=== PATIENT | male | born 1990 | race Caucasian/White ===

== ENCOUNTER 2020-08-30 10:18 | Outpatient (REF) | payer OTHER, SELFPAY | END 2020-08-30 10:19 | disposition home or self-care (01) | LOC: HO.LAB 10:18 | PROVIDERS: Visit Provider Internal Medicine | DX: Z20.828 Contact with and (suspected) exposure to other viral communicable diseases (principal) | CPT/HCPCS: 87635 ==

== ENCOUNTER 2020-10-01 18:55 | Emergency (ER) | payer OTHER, SELFPAY ==
[2020-10-01 19:11] VITALS: BP 135/84; PULSE 102; RESP 16; TEMP 37.1; O2SAT 98; BMI 36.5
[2020-10-01 19:15] VITALS: BP 135/84; PULSE 102; RESP 16; TEMP 37.1; O2SAT 98
--- NOTE | 2020-10-01 19:20 | CT_ITS ---
EXAMINATION: CT MASTOIDS WITHOUT CONTRAST CLINICAL INFORMATION: Right posterior ear pain/swelling. COMPARISON: CT neck with IV contrast dated 03/28/2018. TECHNIQUE: Contiguous axial CT images of the skull base and mastoid air cells were obtained without contrast. Multiplanar reformats were provided and reviewed. This CT examination was performed using dose optimization techniques as appropriate, variously including the following: *Automated exposure control. *Adjustment of mA and/or kV according to patient size (this includes techniques or standardized protocols for targeted exams where dose is matched to indication/reason for exam; i.e. extremities or head). *Use of iterative reconstruction technique. DLP: 253 mGy-cm FINDINGS: The visualized mastoid air cells are clear. No associated air-fluid levels or opacification. No associated osseous erosion or breakdown of the sinus mace. No lytic or blastic osseous lesion. Partial opacification of the left ethmoid air cells. The visualized intracranial structures are unremarkable. Posterior to the right ear there are ovoid, subcutaneous foci. These measure approximately 0.8 x 0.7 cm (axial image 58/232), 1.3 x 1.0 cm more posteriorly (axial image 99/232), and 1.6 x 0.9 cm (axial image 144/232). There is minimal adjacent subcutaneous stranding. Findings likely represent enlarged lymph nodes. No associated organized fluid collection/abscess. CT/CT mastoid IMPRESSION: 1. Nodular soft tissue densities posterior to the right ear along the parieto-occipital calvarium, likely representing prominent lymph nodes. Findings may be reactive to an infectious or inflammatory process. Alternatively, an infiltrative neoplastic process cannot be excluded. Follow up is recommended. 2. No acute osseous abnormality. 3. Partial opacification of the left ethmoid air cells, which could indicate a degree of sinusitis.
--- NOTE | 2020-10-01 19:40 | PC.NURSE ---
PT IS EXTREMELY NERVOUS ABOUT ROBERT IZAGUIRRE.
[2020-10-01 19:54] LABS: MANUAL DIFF FLAG NO
--- NOTE | 2020-10-01 19:56 | PC.NURSE ---
PT IV CANCELED PER ASTON COTA STRAIGHT STICK.
[2020-10-01 20:06] LABS: Basophils Absolute Auto 0.1 X10*3/uL (0.0-0.2); Basophils Percent Auto 0.8 % (0-2); Eosinophils Absolute Auto 0.1 X10*3/uL (0.0-0.4); Eosinophils Percent Auto 1.5 % (0-4); Hematocrit 39.6 % (42-52); Hemoglobin 13.9 g/dl (14.0-18.0); Imm Gran Abs Auto 0.02 X10*3/uL (0.00-0.03); Imm Gran Pct Auto 0.2 % (0.0-0.4); Lymphocytes Absolute Auto 1.8 X10*3/uL (1.2-4.9); Lymphocytes Percent Auto 18.9 % (20-40); Mean Corpuscular HGB Conc 35.1 g/dl (31.0-36.0); Mean Corpuscular Hemoglobin 30.5 pg (27.0-33.0); Mean Corpuscular Volume 86.8 fL (80-98); Mean Platelet Volume 10.5 fL (9.4-12.4); Monocytes Absolute Auto 0.5 X10*3/uL (0.1-1.2); Monocytes Percent Auto 5.8 % (2-11); Neutrophils Absolute Auto 6.8 X10*3/uL (2.0-8.3); Neutrophils Percent Auto 72.8 % (45-73); Platelet Count 251 X10*3/uL (160-400); Red Blood Count 4.56 X10*6/uL (4.60-5.80); White Blood Count 9.3 X10*3/uL (4.8-10.8)
[2020-10-01 20:07] LABS: INTERNATIONAL NORM RATIO 1.1 (0.9-1.1); Prothrombin Time 13.2 SEC (10.8-13.0)
[2020-10-01 20:19] LABS: Anion Gap 12 (12-20); Blood Urea Nitrogen 10 mg/dL (9-16); Calcium 9.3 mg/dL (8.4-10.2); Carbon Dioxide 29 mmol/L (22-29); Chloride 102 mmol/L (96-108); Creatinine Clr Calc Pharmacy 157.1; Estimated Glomerular Filt Rate > 60; Glucose Random 82 mg/dL (60-115); Potassium 3.9 mmol/l (3.3-5.1); Sodium 139 mmol/L (135-145)
--- NOTE | 2020-10-01 20:20 | ED.EAR ---
HPI - Ear Problem General Chief complaint: Ear Problems Stated complaint: Earache Time Seen by Provider: 10/01/20 19:13 Source: patient Mode of arrival: ambulatory Limitations: no limitations History of Present Illness HPI Narrative: 30yoM c PMHx of odd detrimental health believes, ADHD and MRSA presenting to the ED with complaints of right posterior ear pain for the past 3 days denies any other symptom complaints or concerns at this time. Reports that has happened in the past and usually goes away within 2-3 days. Other associated symptoms at this time. Related Data Previous Rx's Medication Instructions Recorded cephalexin [Keflex] 500 mg PO Q6H 10 Days #40 cap 10/01/20 doxycycline monohydrate 100 mg PO BID 10 Days #20 cap 10/01/20 ibuprofen 800 mg PO Q8H PRN #14 tab 10/01/20 Allergies Allergy/AdvReac Type Severity Reaction Status Date / Time No Known Allergies Allergy Verified 10/01/20 19:17 [No Known Allergies*] Review of Systems Review of Systems: Constitutional : No Fever, No Chills, ENT/Mouth : No Hearing loss, + Ear Pain, No Nasal Congestion, No Sinus Pain, No Hoarseness, No sore throat, No Rhinorrhea, No Swallowing Difficulty Eyes: No Eye Pain, No Swelling, No Redness, No Foreign Body, No Discharge, No Vision Changes Cardiovascular : No Chest Pain, No SOB Respiratory : No Cough, No Sputum, No Wheezing Gastrointestinal : No Nausea, No Vomiting, No Diarrhea, No Constipation, No abdominal Pain Genitourinary : No Dysuria Musculoskeletal : No joint pain, No Myalgias, No Joint Swelling Skin : No Skin Lesions, No rash Neuro : No Weakness, No Numbness, No Paresthesias, No Loss of Consciousness, No Dizziness, No Headache Heme/Lymph: + Lymphadenopathy Yes all other systems are reviewed and are negative PMFSH Past Medical History Attestation statement: The following information was validated with the patient. Medical History ADHD MRSA (methicillin resistant Staphylococcus aureus) No known health problems Odd detrimental health beliefs Social History Social History Smoking Status: Current every day smoker Substance Use Type: Marijuana Advance Directives: No Advance Directives Information Provided: Yes Physical Exam Vital Signs: Vital Signs: Last Vital Signs Temp 98.7 F 10/01/20 19:15 Pulse 102 H 10/01/20 19:15 Resp 16 10/01/20 19:15 BP 135/84 10/01/20 19:15 Pulse Ox 98 10/01/20 19:15 Body Mass Index 36.5 vital signs have been reviewed as normal and appeared to be correct. Blood pressure normal. Heart rate normal. Respiration rate normal. Temperature normal. Oxygen saturation normal. Appearance: Alert. Oriented X3. No acute distress. Head: Normal external exam. Normocephalic. Atraumatic. Eyes: PERRLA. EOMI. Conjunctiva and sclera normal. Eyelids normal. ENT: EAC normal. TM's Normal. TTP of right posterior aspect of the ear with mild soft tissues swelling and feels firm. No erythema noted. Pharynx normal. Uvula midline. Moist mucous membranes. Neck: Normal inspection. Neck supple. FROM. No adenopathy. Thyroid Normal. No meningeal signs. No neck mass noted. CVS: Normal heart rate and rhythm. Heart sound normal. No murmurs noted. Pulses normal throughout. Respiratory: No respiratory distress. Painless inspiration. Breath sounds normal. No wheezes/rales/rhonchi noted. Chest nontender. No accessory muscle usage noted or decreased air movement noted. Back: Full range of motion noted. Skin: Skin warm and dry. Normal skin color. Normal skin turgor. No rashes/lesions/lacerations noted. Extremities: Extremities exhibit normal range of motion. Extremities nontender. Neuro: Oriented X 3. No motor deficit. No sensory deficit. Reflexes normal. Course Course Course Narrative: 30yoM c PMHx of [facility] believes, ADHD and MRSA presenting to the ED with complaints of right posterior ear pain for the past 3 days denies any other symptom complaints or concerns at this time. Reports that has happened in the past and usually goes away within 2-3 days. - concern for mastoiditis. - labs obtained and all within normal limits. CT scan of mastoid revealed densities posterior to the right ear along the parieto-occipital calvarium, likely representing prominent lymph nodes. Findings may be reactive to an infectious or inflammatory process. Alternatively, an infiltrative neoplastic process cannot be excluded. - therefore I gave a copy to the patient will DC home with antibiotics and referral to ENT and Oncology. Along with instructions return if any new or worsening symptoms. Patient understands agrees the plan. MDM - Ear Medical Records Attestation: I reviewed the patient's medical records. Lab Data Attestation: I reviewed the patient's lab results. Result diagrams: 10/01/20 19:48 10/01/20 19:48 Labs: Lab Results 10/01/20 10/01/20 10/01/20 Range/Units 19:48 19:48 19:48 WBC 9.3 (4.8-10.8) X10*3/uL RBC 4.56 L (4.60-5.80) X10*6/uL Hgb 13.9 L (14.0-18.0) g/dl Hct 39.6 L (42-52) % MCV 86.8 (80-98) fL MCH 30.5 (27.0-33.0) pg MCHC 35.1 (31.0-36.0) g/dl RDW 12.0 (11.0-16.0) % Plt Count 251 (160-400) X10*3/uL MPV 10.5 (9.4-12.4) fL Immature Gran % (Auto) 0.2 (0.0-0.4) % Neut % (Auto) 72.8 (45-73) % Lymph % (Auto) 18.9 L (20-40) % [place] % (Auto) 5.8 (2-11) % Eos % (Auto) 1.5 (0-4) % Baso % (Auto) 0.8 (0-2) % Lymph # (Auto) 1.8 (1.2-4.9) X10*3/uL [place] # (Auto) 0.5 (0.1-1.2) X10*3/uL Eos # (Auto) 0.1 (0.0-0.4) X10*3/uL Baso # (Auto) 0.1 (0.0-0.2) X10*3/uL Abs Immat Gran (auto) 0.02 (0.00-0.03) X10*3/uL Absolute Neuts (auto) 6.8 (2.0-8.3) X10*3/uL Absolute Nucleated RBC 0.000 (0.0-0.012) X10*3/uL Nucleated RBC % (auto) 0.0 (0.0-0.2) /100WBC PT 13.2 H (10.8-13.0) SEC INR 1.1 (0.9-1.1) Sodium 139 (135-145) mmol/L Potassium 3.9 (3.3-5.1) mmol/l Chloride 102 (96-108) mmol/L Carbon Dioxide 29 (22-29) mmol/L Anion Gap 12 (12-20) BUN 10 (9-16) mg/dL Creatinine 0.83 (0.5-1.4) mg/dL Estim Creat Clear Calc 157.1 Estimated GFR > 60 Random Glucose 82 (60-115) mg/dL Calcium 9.3 (8.4-10.2) mg/dL Imaging Data CT mastoids : Attestation: I personally reviewed and interpreted this imaging study as follows: Radiologist's impression: IMPRESSION: 1. Nodular soft tissue densities posterior to the right ear along the parieto-occipital calvarium, likely representing prominent lymph nodes. Findings may be reactive to an infectious or inflammatory process. Alternatively, an infiltrative neoplastic process cannot be excluded. Follow up is recommended. 2. No acute osseous abnormality. 3. Partial opacification of the left ethmoid air cells, which could indicate a degree of sinusitis. Discharge Plan Discharge Clinical Impression: Lymphadenopathy, postauricular, Sinusitis Patient Disposition: Home, Self-Care Instructions: Sinusitis (ED), Lymphadenopathy (ED) Prescriptions: New ibuprofen 800 mg tablet 800 mg PO Q8H PRN (Reason: pain) Qty: 14 RF: 0 doxycycline monohydrate 100 mg capsule 100 mg PO BID 10 Days Qty: 20 RF: 0 cephalexin [Keflex] 500 mg capsule 500 mg PO Q6H 10 Days Qty: 40 RF: 0 Referrals: Simon Mcelroy PA-C [Primary Care Provider] - 2 days Priscilla Orellana MD [Physician] - 2 days Jose Turcios MD [Physician] - 2 days Stand Alone Forms: Work/School Release Print Language: Citizen Of [place]
== END 2020-10-01 20:50 | disposition home or self-care (01) ==
PROVIDERS: Physician Assistant Medical; Emergency Provider Internal Medicine; PCP Physician Assistant
DX: J01.90 Acute sinusitis, unspecified (principal); R59.1 Generalized enlarged lymph nodes; F17.200 Nicotine dependence, unspecified, uncomplicated; Z71.6 Tobacco abuse counseling; F12.90 Cannabis use, unspecified, uncomplicated; Z79.899 Other long term (current) drug therapy
CPT/HCPCS: 36415; 70481; 80048; 85025; 85610; 99284

== ENCOUNTER 2020-10-13 09:10 | Emergency (ER) | payer OTHER, SELFPAY ==
[2020-10-13 09:21] VITALS: BP 148/98; PULSE 60; RESP 16; TEMP 36.6; O2SAT 98; BMI 34.9
--- NOTE | 2020-10-13 09:39 | ED.HA ---
HPI - Headache General Chief Complaint: Headache <ASTON Sun Last Filed: 10/13/20 11:13> Stated Complaint: SHARP PAIN IN HEAD <ASTON Sun Last Filed: 10/13/20 11:13> Time Seen by Provider: 10/13/20 09:34 <ASTON Sun Last Filed: 10/13/20 11:13> Source: patient <ASTON Sun Last Filed: 10/13/20 11:13> Mode of arrival: ambulatory <ASTON Sun Last Filed: 10/13/20 11:13> Limitations: no limitations <ASTON Sun Last Filed: 10/13/20 11:13> History of Present Illness HPI Narrative: 30 y/o male presents with left sided headache for the last 4 days. He states it started after he had a choking episode and was coughing hard. He states the pain is worse with movement and bending down. He denies dizziness, fevers, gait abnormality, vision changes, weakness, or numbness. He was recently seen here on 10/[address] behind right ear - had CT scan of his head at that time showing enlarged post-auricular LN. He was prescribed antibiotics but never took them because the swelling was gone the next day. <ASTON Sun Last Filed: 10/13/20 11:13> MD elicited complaint: headache <ASTON Sun Last Filed: 10/13/20 11:13> Onset (ago): day(s) (4) <ASTON Sun Last Filed: 10/13/20 11:13> Onset description: gradually <ASTON Sun Last Filed: 10/13/20 11:13> Location: left and temporal <ASTON Sun Last Filed: 10/13/20 11:13> Severity: moderate <ASTON Sun Last Filed: 10/13/20 11:13> Quality & Timing: aching <ASTON Sun Last Filed: 10/13/20 11:13> Related Data Home Medications: Previous Rx's Medication Instructions Recorded cephalexin [Keflex] 500 mg PO Q6H 10 Days #40 cap 10/01/20 doxycycline monohydrate 100 mg PO BID 10 Days #20 cap 10/01/20 ibuprofen 800 mg PO Q8H PRN #14 tab 10/01/20 amoxicillin-pot clavulanate 1 tab PO Q12H #14 tab 10/13/20 [Augmentin] [id number]-zulqbgtcjnhas-miox 1 cap PO Q6H PRN #14 cap 10/13/20 [Fioricet] <ASTON Sun - Last Filed: 10/13/20 11:13> Allergies/Adverse Reactions: Allergies Allergy/AdvReac Type Severity Reaction Status Date / Time No Known Allergies Allergy Verified 10/01/20 19:17 [No Known Allergies*] <ASTON Sun - Last Filed: 10/13/20 11:13> Review of Systems Review of Systems: Constitutional: No Fever, No Chills ENT/Mouth: No sore throat, No Rhinorrhea, No Swallowing Difficulty Eyes: No Eye Pain, No Swelling, No Redness Cardiovascular: No Chest Pain, No SOB Respiratory: No Cough, No Sputum Gastrointestinal: No Nausea, No Vomiting, No Diarrhea, No abdominal Pain Musculoskeletal: No joint pain, No Myalgias Skin: No Skin Lesions, No rash Neuro: No Weakness, No Numbness, No Dizziness, + Headache Psych: No Anxiety/Panic, No Depression Heme/Lymph: No Lymphadenopathy <ASTON Sun Last Filed: 10/13/20 11:13> PMFSH Past Medical History Attestation statement: The following information was validated with the patient. <ATSON Sun - Last Filed: 10/13/20 11:13> Medical History: Medical History (Updated 10/14/20 @ 00:00 by Lonny Stover) ADHD MRSA (methicillin resistant Staphylococcus aureus) No known health problems Oppositional defiant disorder <ASTON Sun Last Filed: 10/13/20 11:13> Social History Social History: Social History Smoking Status: Current every day smoker Substance Use Type: Marijuana Advance Directives: No Advance Directives Information Provided: No <ASTON Sun Last Filed: 10/13/20 11:13> Physical Exam Vital Signs: Vital Signs: Last Vital Signs Temp 97.9 F 10/13/20 09:21 Pulse 60 10/13/20 09:21 Resp 16 10/13/20 09:21 BP 148/98 H 10/13/20 09:21 Pulse Ox 98 10/13/20 09:21 Body Mass Index 34.9 Appearance: Alert. Oriented X3. No acute distress. HEENT: normal inspection, PERRLA, EOMI. mild tenderness with pinna pull, left TM with fluid behind and slight bulging. right TM normal. CVS: Normal heart rate and rhythm. Pulses normal. Respiratory: No respiratory distress. Lungs CTAB Skin: Skin warm and dry. Normal skin color. Normal skin turgor. No rashes. Extremities: no LE edema Neuro: Oriented X 3. No motor deficit. No sensory deficit. <ASTON Sun - Last Filed: 10/13/20 11:13> Vital Signs: Last Vital Signs Temp 97.9 F 10/13/20 09:21 Pulse 60 10/13/20 09:21 Resp 16 10/13/20 09:21 BP 148/98 H 10/13/20 09:21 Pulse Ox 98 10/13/20 09:21 Body Mass Index 34.9 <Earnest Trinh MD - Last Filed: 11/03/20 08:37> Course Course Course Narrative: 30 y/o male here with left sided temporal headache, worse with movement and bending down. Exam reveals fluid behind TM, will treat for AOM. Fiorcet given for headache. Stable for discharge. <ASTON Sun - Last Filed: 10/13/20 11:13> I have reviewed the chart <Earnest Trinh MD - Last Filed: 11/03/20 08:37> Discharge Plan Discharge Clinical Impression: Headache, Otitis media <ASTON Sun - Last Filed: 10/13/20 11:13> Patient Disposition: Home, Self-Care <ASTON Sun - Last Filed: 10/13/20 11:13> Instructions: Serous Otitis Media (ED) <ASTON Sun - Last Filed: 10/13/20 11:13> Additional Instructions: Take the prescribed antibiotics for 1 full week. Take the prescribed medication as needed for headache. Take Motrin as needed for headache. If your headache worsens or changes, call your doctor or come back to the ER for further evaluation. Follow up with your Primary Care Doctor next week. <ASTON Sun - Last Filed: 10/13/20 11:13> Prescriptions: New amoxicillin-pot clavulanate [Augmentin] 875-125 mg tablet 1 tab PO Q12H Qty: 14 RF: 0 [id number]-pwipgswnirukx-bhlz [Fioricet] 50-300-40 mg capsule 1 cap PO Q6H PRN (Reason: pain) Qty: 14 RF: 0 No Action ibuprofen 800 mg tablet 800 mg PO Q8H PRN (Reason: pain) Qty: 14 RF: 0 doxycycline monohydrate 100 mg capsule 100 mg PO BID 10 Days Qty: 20 RF: 0 cephalexin [Keflex] 500 mg capsule 500 mg PO Q6H 10 Days Qty: 40 RF: 0 <ASTON Sun - Last Filed: 10/13/20 11:13> Stand Alone Forms: Work/School Release <ASTON Sun - Last Filed: 10/13/20 11:13> Interventions: ED Discharge Assessment Last Done: 10/13/20 10:08 <ASTON Sun - Last Filed: 10/13/20 11:13> Discharge Date/Time: 10/13/20 10:09 <ASTON Sun - Last Filed: 10/13/20 11:13>
[2020-10-13] MEDS: Butalb/Acetamin/Caff 50/325/40 TABLET 1 TAB PO (10:01)
[2020-10-13] MEDS: Amoxicillin 500 MG CAPSULE PO (10:01)
== END 2020-10-13 10:09 | disposition home or self-care (01) ==
PROVIDERS: Emergency Provider Emergency Medicine
DX: H65.02 Acute serous otitis media, left ear (principal); R51.9 Headache, unspecified; F12.90 Cannabis use, unspecified, uncomplicated; F17.200 Nicotine dependence, unspecified, uncomplicated; Z71.6 Tobacco abuse counseling; Z79.899 Other long term (current) drug therapy
CPT/HCPCS: 99283

== ENCOUNTER 2021-02-05 09:04 | Emergency (ER) | payer OTHER, SELFPAY ==
--- NOTE | ~2021-02-05 | XR_ITS ---
EXAMINATION: XR FOOT, LEFT CLINICAL INFORMATION: Foot pain. COMPARISON: None TECHNIQUE: AP, lateral, and oblique views of the left foot. FINDINGS: The bones and soft tissues are normal. No fracture. Alignment is anatomic. Joint spaces are maintained. XR/XR foot LT min 3V IMPRESSION: Unremarkable left foot exam.
[2021-02-05 09:14] VITALS: BP 144/61; PULSE 72; RESP 18; TEMP 36.8; O2SAT 99; BMI 38.0
--- NOTE | 2021-02-05 09:50 | ED.LOWEXIN ---
HPI - Extremity Injury (Lower) General Chief Complaint: Extremity Injury, Lower Stated Complaint: l foot inj Time Seen by Provider: 02/05/21 09:39 Source: patient Mode of arrival: ambulatory History of Present Illness HPI Narrative: 31-year-old male with a past medical history ADHD, MRSA, ODD, presenting to the ED complaining of left foot pain since yesterday. Reports pain with ambulation/movement of toes. Denies known injury/trauma, falls or crushing. Denies numbness, tingling, weakness, fever chills complaint: foot injury Related Data Previous Rx's Medication Instructions Recorded cephalexin [Keflex] 500 mg PO Q6H 10 Days #40 cap 10/01/20 doxycycline monohydrate 100 mg PO BID 10 Days #20 cap 10/01/20 ibuprofen 800 mg PO Q8H PRN #14 tab 10/01/20 amoxicillin-pot clavulanate 1 tab PO Q12H #14 tab 10/13/20 [Augmentin] [id number]-lpotawvpwrtrb-[id number] 1 cap PO Q6H PRN #14 cap 10/13/20 [Fioricet] acetaminophen [Tylenol Extra 500 mg PO Q6H PRN #20 tab 02/05/21 Strength] lidocaine [Lidoderm] 1 patch TOPICAL DAILY PRN #30 ea 02/05/21 MDD remove after 12 hours naproxen 500 mg PO BID PRN 10 Days #20 tab 02/05/21 Allergies Allergy/AdvReac Type Severity Reaction Status Date / Time No Known Allergies Allergy Verified 10/01/20 19:17 [No Known Allergies*] Review of Systems Review of Systems: Constitutional: No Fever, No Chills Musculoskeletal: + joint pain, No Myalgias, + Joint Swelling Skin: No Skin Lesions, No rash Neuro: No Weakness, No Numbness, No Paresthesias Yes all other systems are reviewed and are negative PMFSH Past Medical History Attestation statement: The following information was validated with the patient. Medical History (Updated 02/05/21 @ 10:26 by ASTON Walker) ADHD MRSA (methicillin resistant Staphylococcus aureus) No known health problems Oppositional defiant disorder Social History Social History Smoking Status: Current every day smoker Substance Use Type: Marijuana Advance Directives: Yes Advance Directives Information Provided: Yes Advance Directives on File: No Physical Exam Vital Signs: Vital Signs: Last Vital Signs Temp 98.3 F 02/05/21 09:14 Pulse 72 02/05/21 09:14 Resp 18 02/05/21 09:14 BP 144/61 H 02/05/21 09:14 Pulse Ox 99 02/05/21 09:14 Body Mass Index 38.0 Const: General: cooperative, healthy appearing and no acute distress Orientation/consciousness: patient oriented x3 Limitations: no limitations HENMT: Head: Yes normal to inspection Ears: hearing grossly normal bilaterally General nose exam: Normal external nose present Face and sinus: Yes normal facial exam Eyes: General: appearance normal, both eyes and all related structures EOM: EOMs intact bilaterally Neck: Neck: Yes normal visual inspection Resp: Effort & Inspection: normal respiratory effort Cardio: Peripheral pulses: dorsalis pedis present Skin: Rashes: no rashes Wounds: no wounds Neuro: General: patient oriented x3, tone normal and moves all extremities Gait exam (Neuro): Normal gait present Extrem: Other: Left foot with mild plantar swelling distally and tenderness to palpation. No erythema/fluctuance/induration. NV intact Full range of motion intact to ankle/toes Course Course Course Narrative: XR foot LT min 3V IMPRESSION: Unremarkable left foot exam >> patient placed in Tico wrap for comfort MDM - Extremity Injury (Lower) MDM Narrative Medical decision making narrative: 31-year-old male with a past medical history ADHD, MRSA, ODD, presenting to the ED complaining of left foot pain since yesterday. On exam VSS, NAD/well-appearing, physical exam as above. Concern for MSK pain/stress fracture. Exam not consistent with cellulitis/abscess. Will obtain x-rays Discharge Plan Discharge Clinical Impression: Acute foot pain Qualifiers: Laterality: left Qualified Code(s): M79.672 - Pain in left foot Patient Disposition: Home, Self-Care Instructions: Metatarsalgia (DC) Additional Instructions: Your x-rays are unremarkable. Wear [place]ico wrap at home as needed for comfort. Your pain is likely musculoskeletal Naproxen as an anti-inflammatory / pain medication, take with food Lidoderm patches are numbing patches, apply to painful area In addition take Tylenol at home Ice and elevate your foot If symptoms persist or worsen, pain becomes unbearable, or weakness return to the ED Prescriptions: New acetaminophen [Tylenol Extra Strength] 500 mg tablet 500 mg PO Q6H PRN (Reason: pain or fever) Qty: 20 RF: 0 lidocaine [Lidoderm] 5 % adhesive patch,medicated 1 patch topical DAILY MDD remove after 12 hours PRN (Reason: pain) Qty: 30 RF: 0 naproxen 500 mg tablet 500 mg PO BID PRN (Reason: pain) 10 Days Qty: 20 RF: 0 No Action amoxicillin-pot clavulanate [Augmentin] 875-125 mg tablet 1 tab PO Q12H Qty: 14 RF: 0 [id number]-xuzkimjhomxcd-exnk [Fioricet] 50-300-40 mg capsule 1 cap PO Q6H PRN (Reason: pain) Qty: 14 RF: 0 ibuprofen 800 mg tablet 800 mg PO Q8H PRN (Reason: pain) Qty: 14 RF: 0 doxycycline monohydrate 100 mg capsule 100 mg PO BID 10 Days Qty: 20 RF: 0 cephalexin [Keflex] 500 mg capsule 500 mg PO Q6H 10 Days Qty: 40 RF: 0 Referrals: Ethan Deshpande [Physician] - 2 days
== END 2021-02-05 10:37 | disposition home or self-care (01) ==
PROVIDERS: Emergency Provider Emergency Medicine
DX: M79.672 Pain in left foot (principal); Z86.14 Personal history of Methicillin resistant Staphylococcus aureus infection; F91.3 Oppositional defiant disorder; F90.9 Attention-deficit hyperactivity disorder, unspecified type
CPT/HCPCS: 73630; 99283

== ENCOUNTER 2021-11-11 15:28 | Emergency (ER) | payer OTHER, SELFPAY ==
[2021-11-11 16:40] VITALS: BP 137/87; PULSE 78; RESP 16; TEMP 36.9; O2SAT 98; BMI 38.0
--- NOTE | 2021-11-11 17:27 | ED.EAR ---
HPI - Ear Problem General Chief complaint: Ear Problems Stated complaint: left ear pain Time Seen by Provider: 11/11/21 17:26 History of Present Illness HPI Narrative: Patient complains of left ear pain for 2 days, no fever no toothache no stuffy nose no congestion no sinus pain no sore throat Related Data Previous Rx's Medication Instructions Recorded cephalexin 500 mg capsule (Keflex) 500 mg PO Q6H 10 Days #40 cap 10/01/20 doxycycline monohydrate 100 mg 100 mg PO BID 10 Days #20 cap 10/01/20 capsule ibuprofen 800 mg tablet 800 mg PO Q8H PRN #14 tab 10/01/20 amoxicillin 875 mg-potassium 1 tab PO Q12H #14 tab 10/13/20 clavulanate 125 mg tablet (Augmentin) vzmbmirdpi-ftytqehwiovwo-snzuxszt 1 cap PO Q6H PRN #14 cap 10/13/20 50 mg-300 mg-40 mg capsule (Fioricet) acetaminophen 500 mg tablet 500 mg PO Q6H PRN #20 tab 02/05/21 (Tylenol Extra Strength) lidocaine 5 % topical patch 1 patch TOPICAL DAILY PRN #30 ea 02/05/21 (Lidoderm) MDD remove after 12 hours naproxen 500 mg tablet 500 mg PO BID PRN 10 Days #20 tab 02/05/21 amoxicillin 875 mg-potassium 1 tab PO Q12H 7 Days #14 tab 11/11/21 clavulanate 125 mg tablet (Augmentin) ciprofloxacin 0.2 %-hydrocortisone 3 drp OTIC (EAR) LEFT BID 7 Days 11/11/21 1 % ear drops,suspension (Cipro HC) ml ciprofloxacin 0.2 %-hydrocortisone 3 drp OTIC (EAR) LEFT BID 7 Days 11/11/21 1 % ear drops,suspension (Cipro HC) #10 ml ibuprofen 600 mg tablet 600 mg PO Q6H PRN #20 tab 11/11/21 Allergies Allergy/AdvReac Type Severity Reaction Status Date / Time No Known Allergies Allergy Verified 11/11/21 16:39 [No Known Allergies*] Review of Systems Review of Systems: Positive for left ear pain Negatives are no fever no chills no dizziness no weakness no headache no neck pain no stiff neck no chest pain no shortness of breath no numbness weakness or tingling no sinus congestion no sinus blockage no toothache no runny Yes all other systems are reviewed and are negative [facility] Past Medical History Source: nursing notes reviewed Medical History (Updated 11/11/21 @ 17:32 by ASTON Norman) ADHD MRSA (methicillin resistant Staphylococcus aureus) No known health problems Oppositional defiant disorder Social History Social History Substance Use Type: Marijuana Advance Directives: No Advance Directives Information Provided: Yes Physical Exam Vital Signs: Vital Signs: Last Vital Signs Temp 98.5 F 11/11/21 16:40 Pulse 78 11/11/21 16:40 Resp 16 11/11/21 16:40 BP 137/87 11/11/21 16:40 Pulse Ox 98 11/11/21 16:40 BMI result Body Mass Index 38.0 General appearance no distress The bilateral ear exam the right ear is normal in appearance the left ear was somewhat cloudy the canal was mildly narrowed and there was pain with movement of the auricle, there was no mastoid tenderness no surrounding redness or erythema no discharge from ear Sinuses nontender Respiratory no distress Extremities full range of motion x4 Course Course Course Narrative: Patient is treated for possible otitis externa with otitis media on left side, was well-appearing and was discharged Discharge Plan Discharge Clinical Impression: Otitis externa Qualifiers: Otitis externa type: unspecified type Chronicity: acute Laterality: left Qualified Code(s): H60.502 - Unspecified acute noninfective otitis externa, left ear Otitis media Qualifiers: Otitis media type: unspecified Laterality: left Qualified Code(s): H66.92 - Otitis media, unspecified, left ear Patient Disposition: Home, Self-Care Additional Instructions: We are treating with antibiotic drops and pills Return any time for worse pain fever any worse condition or or any concern Follow with primary doctor in 3-4 days if not improved or you can return to the ER any time Prescriptions: New amoxicillin-pot clavulanate [Augmentin] 875-125 mg tablet 1 tab PO Q12H 7 Days Qty: 14 RF: 0 Cipro HC 0.2-1 % drops,suspension 3 drp otic (ear) left BID 7 Days RF: 0 Cipro HC 0.2-1 % drops,suspension 3 drp otic (ear) left BID 7 Days Qty: 10 RF: 0 ibuprofen 600 mg tablet 600 mg PO Q6H PRN (Reason: pain) Qty: 20 RF: 0 No Action amoxicillin-pot clavulanate [Augmentin] 875-125 mg tablet 1 tab PO Q12H Qty: 14 RF: 0 xbubaarmgu-jlrqkyfeucyzt-nass [Fioricet] 50-300-40 mg capsule 1 cap PO Q6H PRN (Reason: pain) Qty: 14 RF: 0 ibuprofen 800 mg tablet 800 mg PO Q8H PRN (Reason: pain) Qty: 14 RF: 0 doxycycline monohydrate 100 mg capsule 100 mg PO BID 10 Days Qty: 20 RF: 0 cephalexin [Keflex] 500 mg capsule 500 mg PO Q6H 10 Days Qty: 40 RF: 0 acetaminophen [Tylenol Extra Strength] 500 mg tablet 500 mg PO Q6H PRN (Reason: pain or fever) Qty: 20 RF: 0 lidocaine [Lidoderm] 5 % adhesive patch,medicated 1 patch topical DAILY MDD remove after 12 hours PRN (Reason: pain) Qty: 30 RF: 0 naproxen 500 mg tablet 500 mg PO BID PRN (Reason: pain) 10 Days Qty: 20 RF: 0
== END 2021-11-11 17:42 | disposition home or self-care (01) ==
PROVIDERS: Emergency Provider Internal Medicine
DX: H66.92 Otitis media, unspecified, left ear (principal); H60.502 Unspecified acute noninfective otitis externa, left ear
CPT/HCPCS: 99283

== ENCOUNTER 2021-11-15 12:36 | Emergency (ER) | payer OTHER, SELFPAY ==
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
[2021-11-15 12:51] VITALS: BP 165/105; PULSE 100; RESP 19; TEMP 36.6; O2SAT 100; BMI 38.0
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
[2021-11-15] MEDS: Acetaminophen 325 MG TABLET 650 MG PO (14:49)
== END 2021-11-15 15:47 | disposition home or self-care (01) ==
PROVIDERS: Emergency Provider Emergency Medicine
DX: S02.2XXA Fracture of nasal bones, initial encounter for closed fracture (principal); Y04.2XXA Assault by strike against or bumped into by another person, initial encounter; Y93.89 Activity, other specified; Y92.511 Restaurant or cafe as the place of occurrence of the external cause; Y99.0 Civilian activity done for income or pay
CPT/HCPCS: 70160; 70450; 70486; 99284

== ENCOUNTER 2022-08-01 08:25 | Emergency (ER) | payer OTHER, SELFPAY ==
--- NOTE | ~2022-08-01 | XR_ITS ---
EXAMINATION: XR CHEST CLINICAL INFORMATION: Shortness of breath COMPARISON: 12/27/2016 TECHNIQUE: 2 views of the chest were obtained. FINDINGS: No significant abnormality is noted involving the heart, lungs, mediastinum, bony thorax or soft tissues. XR/XR chest 2V IMPRESSION: Unremarkable examination.
[2022-08-01 08:38] VITALS: BP 144/81; PULSE 89; RESP 18; TEMP 36.6; O2SAT 98; BMI 38.0
[2022-08-01 09:19] LABS: COVID-19 Test Negative (Negative); IDNOW Serial# 16C4AD1C
--- NOTE | 2022-08-01 09:46 | ED_ITS ---
HPI - URI/Sore Throat General Chief Complaint: Upper Respiratory Symptoms Stated Complaint: Stuffy Nose Congestion Time Seen by Provider: 08/01/22 09:46 Source: patient Mode of arrival: ambulatory Limitations: no limitations History of Present Illness HPI Narrative: Patient presents emergency department for evaluation of upper respiratory symptoms. He reports 2 days ago he had a sore throat that lasted about 24 hours, yesterday he began with nasal congestion. This morning he developed a productive cough, during his coughing episodes he felt short of breath therefore he came to the emergency department. At this time denies shortness of breath. Reports that 1 of his children are ill with similar symptoms at this time. Denies fevers, chills, sore throat, chest pain, palpitations, shortness of breath, difficulty breathing prior nausea, vomiting abdominal pain, numbness or tingling of the extremities. Related Data Previous Rx's Medication Instructions Recorded cephalexin 500 mg capsule (Keflex) 500 mg PO Q6H 10 days #40 caps 10/01/20 doxycycline monohydrate 100 mg 100 mg PO BID 10 days #20 caps 10/01/20 capsule ibuprofen 800 mg tablet 800 mg PO Q8H PRN pain #14 tabs 10/01/20 amoxicillin 875 mg-potassium 1 tab PO Q12H #14 tabs 10/13/20 clavulanate 125 mg tablet (Augmentin) fmljdislfx-vvofadwqkzswf-xxfjmekm 1 cap PO Q6H PRN pain #14 caps 10/13/20 50 mg-300 mg-40 mg capsule (Fioricet) acetaminophen 500 mg tablet 500 mg PO Q6H PRN pain or fever 02/05/21 (Tylenol Extra Strength) #20 tabs lidocaine 5 % topical patch 1 patch topical DAILY PRN pain #30 02/05/21 (Lidoderm) ea naproxen 500 mg tablet 500 mg PO BID PRN pain 10 days #20 02/05/21 tabs amoxicillin 875 mg-potassium 1 tab PO Q12H 7 days #14 tabs 11/11/21 clavulanate 125 mg tablet (Augmentin) ciprofloxacin 0.2 %-hydrocortisone 3 drp otic (ear) left BID 7 days 11/11/21 1 % ear drops,suspension (Cipro HC) ciprofloxacin 0.2 %-hydrocortisone 3 drp otic (ear) left BID 7 days 11/11/21 1 % ear drops,suspension (Cipro HC) #10 mL ibuprofen 600 mg tablet 600 mg PO Q6H PRN pain #20 tabs 11/11/21 acetaminophen 500 mg capsule 1,000 mg PO Q6H PRN pain #14 caps 11/15/21 cephalexin 500 mg capsule 500 mg PO QID 7 days #28 caps 11/15/21 oxycodone 5 mg tablet 5 mg PO Q8H PRN pain #10 tabs 11/15/21 Allergies Allergy/AdvReac Type Severity Reaction Status Date / Time No Known Allergies Allergy Verified 11/11/21 16:39 [No Known Allergies*] Review of Systems Review of Systems: Constitutional: No fever. No chills. No weakness. Positive fatigue. ENT/ Mouth: No Ear Pain, positive Nasal Congestion, no sore throat, No Rhinorrhea, No Swallowing Difficulty Skin: No rash or itching. Cardiovascular: No chest pain. No palpitations. Respiratory: No shortness of breath. Positive cough. Positive sputum production. Gastrointestinal: No nausea. No vomiting. No diarrhea. No abdominal pain. Genitourinary: No burning micturition. No urinary frequency. Neurologic: No headache. No dizziness. No syncope. No numbness or tingling in the extremities. Musculoskeletal: No muscle pain. No back pain. No joint pain or stiffness. Yes all other systems are reviewed and are negative PMFSH Past Medical History Attestation statement: The following information was validated with the patient. Source: old records reviewed Medical History ADHD MRSA (methicillin resistant Staphylococcus aureus) No known health problems Oppositional defiant disorder Social History Social History Substance Use Type: Marijuana Advance Directives: No Advance Directives Information Provided: Yes Physical Exam Vital Signs: Vital Signs: Last Vital Signs Temp 97.9 F 08/01/22 08:38 Pulse 89 08/01/22 08:38 Resp 18 08/01/22 08:38 BP 144/81 H 08/01/22 08:38 Pulse Ox 98 08/01/22 08:38 O2 Del Method 08/01/22 08:38 BMI result Body Mass Index 38.0 Appearance: Alert.?Oriented to person, place and time. No acute distress.?Normal affect. Eyes: Pupils equal, round and reactive to light.? ENT: TM normal bilaterally. Pharynx normal.?? Neck: Normal inspection.? Neck supple.??No cervical adenopathy CVS: Heart sounds normal. Normal heart rate and rhythm.? Pulses normal.?? Respiratory: No respiratory distress.? Lung sounds clear to auscultation bilaterally?? Abdomen: Soft and non-tender. Normoactive bowel sounds. Skin: Skin warm and dry.? Normal skin color.? ? Extremities: No lower extremity edema.? Neuro: Moves all extremities spontaneously. Sensation intact bilaterally. No motor deficits. Ambulates with normal steady gait. Course Course Course Narrative: Patient is a 32-year-old male presenting for evaluation of upper respiratory symptoms. COVID-19 testing is negative. At this time history and physical exam not consistent with ACS/PE/pneumonia. Well-appearing, nontoxic, afebrile, no tachycardia or tachypnea/hypoxia. Speaking clear full sentences, ambulatory with steady gait. Discussed conservative treatment including rest, hydration, Tylenol/ibuprofen as needed for fever and body aches, saline nasal spray, humidifier, hnoc-dps-wshcdrq cold medication/ mucinex. Advised to follow-up with primary care provider as needed, discussed reasons to return back to the emergency department. All questions were answered. Patient discharged home in stable condition. Provided with a return to work/school note. MDM - URI/Sore Throat Medical Records Attestation: I reviewed the patient's medical records. Lab Data Attestation: I reviewed the patient's lab results. Labs: Lab Results 08/01/22 Range/Units 08:43 COVID-19 (LEXX) Negative (Negative) COVID-19 Clin Com See Note Imaging Data Chest x-ray: Radiologist's impression: XR/XR chest 2V IMPRESSION: Unremarkable examination. Discharge Plan Discharge Clinical Impression: Upper respiratory infection Patient Disposition: Home, Self-Care Instructions: Upper Respiratory Infection (ED) Additional Instructions: Be sure to rest, stay well hydrated drinking plenty of fluids, eat small fr equent meals. Tylenol/ibuprofen can be used as needed for fever/pain. Uvyc-usx-npvbfwc cold medications may be helpful as well for symptoms. Saline nasal spray, humidifier, Mucinex may be helpful for nasal congestion. You may return to the emergency department with any new or worsening symptoms or concerns. Follow-up with your primary care provider as needed. Prescriptions: No Action amoxicillin-pot clavulanate [Augmentin] 875-125 mg tablet 1 tab PO Q12H Qty: 14 0RF cvpbopbzji-ilxxhrqmpubvt-liff [Fioricet] 50-300-40 mg capsule 1 cap PO Q6H PRN (Reason: pain) Qty: 14 0RF ibuprofen 800 mg tablet 800 mg PO Q8H PRN (Reason: pain) Qty: 14 0RF doxycycline monohydrate 100 mg capsule 100 mg PO BID 10 Days Qty: 20 0RF cephalexin [Keflex] 500 mg capsule 500 mg PO Q6H 10 Days Qty: 40 0RF acetaminophen [Tylenol Extra Strength] 500 mg tablet 500 mg PO Q6H PRN (Reason: pain or fever) Qty: 20 0RF lidocaine [Lidoderm] 5 % adhesive patch,medicated 1 patch topical DAILY MDD remove after 12 hours PRN (Reason: pain) Qty: 30 0RF Rx Instructions: leave on most painful area for up to 12 hrs naproxen 500 mg tablet 500 mg PO BID PRN (Reason: pain) 10 Days Qty: 20 0RF amoxicillin-pot clavulanate [Augmentin] 875-125 mg tablet 1 tab PO Q12H 7 Days Qty: 14 0RF Cipro HC 0.2-1 % drops,suspension 3 drp otic (ear) left BID 7 Days 0RF Cipro HC 0.2-1 % drops,suspension 3 drp otic (ear) left BID 7 Days Qty: 10 0RF ibuprofen 600 mg tablet 600 mg PO Q6H PRN (Reason: pain) Qty: 20 0RF acetaminophen 500 mg capsule 1,000 mg PO Q6H PRN (Reason: pain) Qty: 14 0RF cephalexin 500 mg capsule 500 mg PO QID 7 Days Qty: 28 0RF oxycodone 5 mg tablet 5 mg PO Q8H PRN (Reason: pain) Qty: 10 0RF Stand Alone Forms: Work/School Release
== END 2022-08-01 10:51 | disposition home or self-care (01) ==
PROVIDERS: Emergency Provider Emergency Medicine
DX: J06.9 Acute upper respiratory infection, unspecified (principal); R05.9 Cough, unspecified; F12.90 Cannabis use, unspecified, uncomplicated; Z20.822 Contact with and (suspected) exposure to COVID-19; Z79.899 Other long term (current) drug therapy
CPT/HCPCS: 71046; 87635; 99282; 99283

== ENCOUNTER 2023-10-21 08:21 | Emergency (ER) | payer MEDICAID, SELFPAY ==
--- NOTE | ~2023-10-21 | CT_ITS ---
EXAMINATION: CT CERVICAL SPINE WITHOUT CONTRAST CLINICAL INFORMATION: Left-sided neck pain. COMPARISON: None available. TECHNIQUE: 3 mm thin axial and 2 mm thin sagittal and coronal images of cervical spine were obtained without contrast. This CT examination was performed using dose optimization techniques as appropriate, variously including the following: *Automated exposure control *Adjustment of mA and/or kV according to patient size (this includes techniques or standardized protocols for targeted exams where dose is matched to indication/reason for exam; i.e. extremities or head) *Use of iterative reconstruction technique DLP: 515 mGy-cm FINDINGS: On sagittal reconstructed images there is normal cervical lordosis. The vertebral heights, alignment and disc heights are normal. The craniovertebral junction and the C1-C2 alignment is normal. There is no visible acute fracture, dislocation or subluxation seen. The prevertebral and paravertebral soft tissues are normal. The airway is widely patent. Thyroid lobes are symmetrical and normal. The lung apices are clear. CT/CT cervical spine wo IV con IMPRESSION: Unremarkable CT cervical spine exam. Fleischner guidelines were followed.
[2023-10-21 08:45] VITALS: BP 126/74; PULSE 49; RESP 18; TEMP 36.2; O2SAT 98; BMI 36.9
--- NOTE | 2023-10-21 08:51 | ECG_ITS ---
Test Reason : neck and lt arm pain Blood Pressure : / mmHG Vent. Rate : 044 BPM Atrial Rate : 044 BPM P-R Int : 138 ms QRS Dur : 086 ms QT Int : 426 ms P-R-T Axes : 016 048 037 degrees QTc Int : 364 ms Marked sinus bradycardia Abnormal ECG When compared with ECG of 08-NOV-2016 06:54, Vent. rate has decreased BY 49 BPM QT has shortened Referred By: Generic ED Physician Electronically Signed By:Rob Paz
[2023-10-21 09:06] LABS: MANUAL DIFF FLAG NO
[2023-10-21 09:11] LABS: Basophils Absolute Auto 0.1 X10*3/uL (0.0-0.2); Basophils Percent Auto 1.3 % (0-2); Eosinophils Absolute Auto 0.1 X10*3/uL (0.0-0.4); Eosinophils Percent Auto 2.2 % (0-4); Hematocrit 41.6 % (42.0-52.0); Hemoglobin 14.3 g/dl (14.0-18.0); Imm Gran Abs Auto 0.03 X10*3/uL (0.00-0.03); Imm Gran Pct Auto 0.5 % (0.0-0.4); Lymphocytes Absolute Auto 1.9 X10*3/uL (1.2-4.9); Lymphocytes Percent Auto 29.6 % (20-40); Mean Corpuscular HGB Conc 34.4 g/dl (31.0-36.0); Mean Corpuscular Hemoglobin 29.9 pg (27.0-33.0); Mean Corpuscular Volume 86.8 fL (80.0-98.0); Mean Platelet Volume 10.4 fL (9.4-12.4); Monocytes Absolute Auto 0.5 X10*3/uL (0.1-1.2); Monocytes Percent Auto 7.2 % (2-11); Neutrophils Absolute Auto 3.8 x10*3/uL (2.0-8.3); Neutrophils Percent Auto 59.2 % (45-73); Platelet Count 271 X10*3/uL (160-400); Red Blood Count 4.79 X10*6/uL (4.60-5.80); Red Cell Distribution Width 12.1 % (11.0-16.0); White Blood Count 6.4 X10*3/uL (4.8-10.8)
[2023-10-21 09:25] LABS: Anion Gap 12 (12-20); Blood Urea Nitrogen 17 mg/dL (9-16); Calcium 9.4 mg/dL (8.4-10.2); Carbon Dioxide 25 mmol/L (22-29); Chloride 107 mmol/L (96-108); Creatinine Clr Calc Pharmacy 146.6; Estimated Glomerular Filt Rate > 60; Glucose Random 96 mg/dL (60-115); Potassium 4.2 mmol/L (3.3-5.1); Sodium 140 mmol/L (135-145)
[2023-10-21 09:32] LABS: Troponin-I High Sensitivity < 2.7 ng/L (<3.5-35.0)
--- NOTE | 2023-10-21 09:42 | ED.GENADULT ---
HPI - General Adult General Chief complaint: General Medical Stated complaint: Pain left side of neck down to arm Time Seen by Provider: 10/21/23 09:12 Source: patient Mode of arrival: ambulatory Limitations: no limitations History of Present Illness HPI narrative: 33 year old male with pmhx significant for ADHD presents to the ED today with complaint of left sided neck pain x2 hours. States that he was dropping off his at work this morning when he suddenly had left-sided neck pain that radiates to his left shoulder. Pain does not move down the left arm. States that he has had a stiff neck in the past upon waking up however this feels different and was not present upon waking this morning. Denies injury/trauma/fall. Pain radiates to left shoulder and is exacerbated with movement of the neck. Denies headache, sweats, vision changes, chest pain or palpitations, shortness of breath, cough/hemoptysis, numbness/tingling/weakness of the upper extremities. No personal or familial history of cardiac disease. No recent travel or long car rides. Related Data Previous Rx's Medication Instructions Recorded cephalexin 500 mg capsule (Keflex) 500 mg PO Q6H 10 days #40 caps 10/01/20 doxycycline monohydrate 100 mg 100 mg PO BID 10 days #20 caps 10/01/20 capsule ibuprofen 800 mg tablet 800 mg PO Q8H PRN pain #14 tabs 10/01/20 amoxicillin 875 mg-potassium 1 tab PO Q12H #14 tabs 10/13/20 clavulanate 125 mg tablet (Augmentin) [id number]-enrdpcld 1 cap PO Q6H PRN pain #14 caps 10/13/20 50 mg-300 mg-40 mg capsule (Fioricet) acetaminophen 500 mg tablet 500 mg PO Q6H PRN pain or fever 02/05/21 (Tylenol Extra Strength) #20 tabs lidocaine 5 % topical patch 1 patch topical DAILY PRN pain #30 02/05/21 (Lidoderm) ea naproxen 500 mg tablet 500 mg PO BID PRN pain 10 days #20 02/05/21 tabs amoxicillin 875 mg-potassium 1 tab PO Q12H 7 days #14 tabs 11/11/21 clavulanate 125 mg tablet (Augmentin) ciprofloxacin 0.2 %-hydrocortisone 3 drp otic (ear) left BID 7 days 11/11/21 1 % ear drops,suspension (Cipro HC) ciprofloxacin 0.2 %-hydrocortisone 3 drp otic (ear) left BID 7 days 11/11/21 1 % ear drops,suspension (Cipro HC) #10 mL ibuprofen 600 mg tablet 600 mg PO Q6H PRN pain #20 tabs 11/11/21 acetaminophen 500 mg capsule 1,000 mg (2 x 500 mg) PO Q6H PRN 11/15/21 pain #14 caps cephalexin 500 mg capsule 500 mg PO QID 7 days #28 caps 11/15/21 oxycodone 5 mg tablet 5 mg PO Q8H PRN pain #10 tabs 11/15/21 cyclobenzaprine 5 mg tablet 5 mg PO BEDTIME PRN muscle spasm 10/21/23 #10 tabs lidocaine 5 % topical patch 1 patch topical DAILY #15 ea 10/21/23 (Lidoderm) naproxen 500 mg tablet 500 mg PO Q8-12H PRN pain (scale 10/21/23 score 4-6) #10 tabs Allergies Allergy/AdvReac Type Severity Reaction Status Date / Time No Known Allergies Allergy Verified 11/11/21 16:39 [No Known Allergies*] Review of Systems Review of Systems: Constitutional: No fever, chills, fatigue, night sweats, weight changes ENT/Mouth: No ear pain, hearing loss, nasal congestion, sinus pain, rhinorrhea, sore throat Eyes: No eye pain, swelling, redness, vision changes, discharge Cardio: No chest pain, palpitations, PEÑA, orthopnea, peripheral edema Pulm: No SOB, cough, sputum, wheezing, dyspnea, hemoptysis GI: No nausea, vomiting, hematemesis, abdominal pain, diarrhea, constipation, hematochezia, melena : No irregular bleeding, dysuria, frequency, urgency, hesitancy, hematuria, flank pain, urinary flow changes, urinary incontinence or retention MSK: No back pain, +neck pain, No joint pain, myalgias Skin: No lesions, rashes Neuro: No weakness, numbness, paresthesias, LOC, dizziness, headache All other systems reviewed and are negative. REPLACED BY [facility] Past Medical History Attestation statement: The following information was validated with the patient. Source: old records reviewed and nursing notes reviewed Medical History Oppositional defiant disorder MRSA (methicillin resistant Staphylococcus aureus) ADHD No known health problems Social History Social History Substance Use Type: Marijuana Advance Directives: No Physical Exam ED Vital Signs: Vital Signs - 24 hr 10/21/23 08:45 10/21/23 11:06 10/21/23 11:09 Temperature 97.2 F 97.3 F Pulse Rate 49 L 45 L Respiratory Rate 18 14 Blood Pressure 126/74 135/74 Pulse Oximetry 98 99 Oxygen Delivery Method Room Air Room Air BMI result Body Mass Index 36.9 Vital signs stable Const General: cooperative, healthy appearing, comfortable, no acute distress, alert and awake Nutritional Appearance: overweight Orientation/consciousness: patient oriented x3 Limitations: no limitations HENMT Head: Yes normal to inspection, Yes normocephalic and Yes atraumatic Ears: hearing grossly normal bilaterally, external ears normal, TM's normal bilaterally, EAC's normal and mastoids normal General nose exam: Normal external nose present Eyes General: appearance normal, both eyes and all related structures Conjunctivae: conjunctivae normal Sclerae: sclerae normal Pupils: Equal, round and reactive pupils present EOM: EOMs intact bilaterally Neck Other: + pain with leftward movment of c spine Neck: Yes normal visual inspection, Yes full ROM, Yes no lymphadenopathy, Yes no meningeal signs and Yes no JVD Chest Chest palpation & inspection: normal inspection of the chest and normal palpation of entire chest wall Resp Effort & Inspection: normal respiratory effort and able to speak in complete sentences Auscultation: clear to auscultation bilaterally Cardio Jugular venous distension: no JVD Rate: bradycardic Rhythm: regular rhythm Peripheral pulses: Peripheral pulses 2+ throughout GI Inspection: Yes normal to inspection Palpation (GI): Soft to palpation, nontender, no pulsatile masses and no aortic enlargement Back/Spine/Pelvis Other: No midline spinous tenderness. + left cervical paraspinal muscle tenderness extending over left trap mm. No step off deformity. Skin General skin exam: no rashes or lesions noted Neuro Other: Strength 5/5 intact throughout.? No saddle anesthesia.? Sensation intact to light touch.? Neurovascular intact distally.? General: patient oriented x3, gait normal, moves all extremities and no meningeal signs Cranial nerves: Yes Equal, round and reactive pupils present Gait exam (Neuro): Normal gait present Coordination: [id number]-[id number]-uwld test normal, [id number] test normal and Normal rapid alternating movements of the distal upper extremity present (Neuro) Extrem General: Yes normal to inspection and Yes full ROM Course Course Course Narrative: 1056-- CBC without leukocytosis or anemia. Chemistry without acute electrolyte abnormality requiring intervention. Troponin undetectable. EKG showing bradycardia at 44 BPM. Normal QT. no acute ischemic changes or ST elevations. No priors to compare to. patient does not complain of chest pain, palpitations, difficulty breathing, dyspnea on exertion. Likely asymptomatic bradycardia. unlikely ACS. CT cervical spine without acute fracture or subluxation. >> on re-evaluation, patient states that his neck pain has improved with Toradol. Now rates pain 2/10. I informed patient of lab and imaging results. This is likely MSK sprain/strain versus cervical radiculopathy. Will send patient home with NSAID, muscle relaxer and lidocaine patches. Patient has remained stable throughout ED visit today. Discussed strict return precautions. All questions answered at this time. Patient is agreeable with disposition and stable for discharge. Medications Administered Discontinued Medications Generic Name Dose Route Start Last Admin Trade Name Freq PRN Reason Stop Dose Admin Ketorolac Tromethamine 30 mg 10/21/23 09:47 10/21/23 10:06 Ketorolac Tromethamine 30 Mg/Ml Vial IM 10/21/23 09:48 30 mg ONCE ONE Administration Medical Decision Making Medical Decision Making [facility] Narrative: 33 year old male with pmhx significant for ADHD presents to the ED today with complaint of left sided neck pain x2 hours. Vital signs stable, normotensive. Patient is nontoxic appearing and in no acute distress. There is full range of motion of the cervical spine with pain on leftward movement of the C-spine. Tender to palpation of the left cervical paraspinal muscles. Bradycardic with regular rhythm. Lungs CTA bilaterally. No calf tenderness bilaterally. Pulses 2+ throughout. Exam is nonfocal. Cerebellum intact. Clinical concern for MSK sprain/strain, cervical radiculopathy. Unlikely viral syndrome, mono, strep throat. Unlikely rotator cuff injury/tear, arrhythmia, ACS, dissection, PE, CVA/TIA, ICH. Plan at this time for basic labs, imaging, pain control. Differential Diagnosis Differential Diagnoses: The differential diagnosis associated with the presentation includes As above. Admission/Observation Not indicated. Lab Data MDM Lab Attestation statement: I reviewed the patient's lab results. As above. 10/21/23 09:02 10/21/23 09:02 Labs: Lab Results 10/21/23 Range/Units 09:02 WBC 6.4 (4.8-10.8) X10*3/uL RBC 4.79 (4.60-5.80) X10*6/uL Hgb 14.3 (14.0-18.0) g/dl Hct 41.6 L (42.0-52.0) % MCV 86.8 (80.0-98.0) fL MCH 29.9 (27.0-33.0) pg MCHC 34.4 (31.0-36.0) g/dl RDW 12.1 (11.0-16.0) % Plt Count 271 (160-400) X10*3/uL MPV 10.4 (9.4-12.4) fL Immature Gran % (Auto) 0.5 H (0.0-0.4) % Neut % (Auto) 59.2 (45-73) % Lymph % (Auto) 29.6 (20-40) % Talbot % (Auto) 7.2 (2-11) % Eos % (Auto) 2.2 (0-4) % Baso % (Auto) 1.3 (0-2) % Lymph # (Auto) 1.9 (1.2-4.9) X10*3/uL Talbot # (Auto) 0.5 (0.1-1.2) X10*3/uL Eos # (Auto) 0.1 (0.0-0.4) X10*3/uL Baso # (Auto) 0.1 (0.0-0.2) X10*3/uL Abs Immat Gran (auto) 0.03 (0.00-0.03) X10*3/uL Absolute Neuts (auto) 3.8 (2.0-8.3) x10*3/uL Absolute Nucleated RBC 0.000 (0.0-0.012) X10*3/uL Nucleated RBC % (auto) 0.0 (0.0-0.2) /100WBC Sodium 140 (135-145) mmol/L Potassium 4.2 (3.3-5.1) mmol/L Chloride 107 (96-108) mmol/L Carbon Dioxide 25 (22-29) mmol/L Anion Gap 12 (12-20) BUN 17 H (9-16) mg/dL Creatinine 0.87 (0.5-1.4) mg/dL Estim Creat Clear Calc 146.6 Estimated GFR > 60 Random Glucose 96 (60-115) mg/dL Calcium 9.4 (8.4-10.2) mg/dL Troponin I High Sens < 2.7 (<3.5-35.0) ng/L Independent Interpretation I performed an independent interpretation of an: EKG and CT Scan Interpretation: EKG showing sinus bradycardia at a rate of 44 beats per minute, QT 426, QTC 364, no acute ischemic changes or ST elevations. CT cervical spine without acute fracture subluxation, agree with radiologist's interpretation. Radiology Impression Discussion of test interpretation with radiology: I have reviewed the radiologist's reading. Radiologist Impression: CT cervical spine wo IV conIMPRESSION: Unremarkable CT cervical spine exam. Fleischner guidelines were followed. External Record Review External record reviewed: Inpatient record Prescription Management I considered prescription management with: Pain Medication and Other (muscle relaxer) Critical Care Time Critical Care Time Critical Care Time: No Discharge Plan Discharge Clinical Impression: Acute neck pain Patient Disposition: Home, Self-Care Instructions: Acute Neck Pain (ED) Additional Instructions: Your EKG was normal. Your labs or unremarkable. Your cardiac enzyme was normal. The image of your neck did not show acute fracture. Your pain is likely musculoskeletal. Use ice several times per day for 20 minutes at a time for the next 48 hours and then change to heat. Flexeril is a muscle relaxer. Take this at night as it makes you drowsy. Do not drive, drink alcohol, or operate machinery while taking it. Naproxen is an anti-inflammatory / pain medication. Take with food. Do not take this with Ibuprofen or other NSAIDs as this may increase chance of gastric bleeding. Lidoderm patches are numbing patches. Apply to painful areas. In addition you may take Tylenol at home. Follow up with your primary care provider as needed If your pain worsens, if you develop new numbness, tingling, weakness, loss of bowel or bladder function call 911 or return to the ER immediately for evaluation. Prescriptions: New lidocaine [Lidoderm] 5 % adhesive patch,medicated 1 patch topical DAILY Qty: 15 0RF Rx Instructions: leave on most painful area for up to 12 hrs naproxen 500 mg tablet 500 mg PO Q8-12H PRN (Reason: pain (scale score 4-6)) Qty: 10 0RF cyclobenzaprine 5 mg tablet 5 mg PO BEDTIME PRN (Reason: muscle spasm) Qty: 10 0RF No Action amoxicillin-pot clavulanate [Augmentin] 875-125 mg tablet 1 tab PO Q12H Qty: 14 0RF [id number]-[id number]-wafl [Fioricet] 50-300-40 mg capsule 1 cap PO Q6H PRN (Reason: pain) Qty: 14 0RF ibuprofen 800 mg tablet 800 mg PO Q8H PRN (Reason: pain) Qty: 14 0RF doxycycline monohydrate 100 mg capsule 100 mg PO BID 10 Days Qty: 20 0RF cephalexin [Keflex] 500 mg capsule 500 mg PO Q6H 10 Days Qty: 40 0RF acetaminophen [Tylenol Extra Strength] 500 mg tablet 500 mg PO Q6H PRN (Reason: pain or fever) Qty: 20 0RF lidocaine [Lidoderm] 5 % adhesive patch,medicated 1 patch topical DAILY MDD remove after 12 hours PRN (Reason: pain) Qty: 30 0RF Rx Instructions: leave on most painful area for up to 12 hrs naproxen 500 mg tablet 500 mg PO BID PRN (Reason: pain) 10 Days Qty: 20 0RF amoxicillin-pot clavulanate [Augmentin] 875-125 mg tablet 1 tab PO Q12H 7 Days Qty: 14 0RF Cipro HC 0.2-1 % drops,suspension 3 drp otic (ear) left BID 7 Days 0RF Cipro HC 0.2-1 % drops,suspension 3 drp otic (ear) left BID 7 Days Qty: 10 0RF ibuprofen 600 mg tablet 600 mg PO Q6H PRN (Reason: pain) Qty: 20 0RF acetaminophen 500 mg capsule 1,000 mg PO Q6H PRN (Reason: pain) Qty: 14 0RF cephalexin 500 mg capsule 500 mg PO QID 7 Days Qty: 28 0RF oxycodone 5 mg tablet 5 mg PO Q8H PRN (Reason: pain) Qty: 10 0RF Referrals: Physician,None [Primary Care Provider] - Stand Alone Forms: Work/School Release Interventions: ED Discharge Assessment Last Done: 10/21/23 11:07 Discharge Date/Time: 10/21/23 11:09
[2023-10-21] MEDS: Ketorolac Tromethamine 30 MG/ML VIAL IM (10:06)
[2023-10-21 11:06] VITALS: BP 135/74; PULSE 45; RESP 14; O2SAT 99
[2023-10-21 11:09] VITALS: TEMP 36.3
== END 2023-10-21 11:09 | disposition home or self-care (01) ==
PROVIDERS: Emergency Provider Emergency Medicine Emergency Medical Services
DX: M54.2 Cervicalgia (principal); M79.602 Pain in left arm; R00.1 Bradycardia, unspecified; M25.512 Pain in left shoulder; Z79.899 Other long term (current) drug therapy
CPT/HCPCS: 36415; 72125; 80048; 84484; 85025; 93005; 96372; 99284; J1885

== ENCOUNTER → 2023-10-21 08:51 | Outpatient (BNV) | payer SELFPAY | PROVIDERS: Emergency Provider Emergency Medicine Emergency Medical Services; Visit Provider Internal Medicine Cardiovascular Disease | DX: R00.1 Bradycardia, unspecified (principal); R94.31 Abnormal electrocardiogram [ECG] [EKG] | CPT/HCPCS: 93010 ==

== ENCOUNTER 2024-02-23 02:17 | Emergency (ER) | payer MEDICAID, SELFPAY ==
--- NOTE | ~2024-02-23 | XR_ITS ---
EXAMINATION: XR FOOT, RIGHT CLINICAL INFORMATION: Swelling and pain. COMPARISON: None available. TECHNIQUE: AP, lateral, and oblique views of the right foot. FINDINGS: The bone mineralization is normal. The joint spaces are maintained. There is no fracture. There is dorsomedial soft tissue swelling. XR/XR foot RT 2V IMPRESSION: Dorsomedial soft tissue swelling. No fracture or dislocation.
[2024-02-23 02:29] VITALS: BP 127/78; PULSE 59; RESP 20; TEMP 36.7; O2SAT 98; BMI 38.0
[2024-02-23 03:07] LABS: MANUAL DIFF FLAG NO
[2024-02-23 03:09] LABS: Basophils Absolute Auto 0.1 X10*3/uL (0.0-0.2); Basophils Percent Auto 1.1 % (0-2); Eosinophils Absolute Auto 0.3 X10*3/uL (0.0-0.4); Eosinophils Percent Auto 2.9 % (0-4); Hematocrit 40.8 % (42.0-52.0); Hemoglobin 14.6 g/dl (14.0-18.0); Imm Gran Abs Auto 0.02 X10*3/uL (0.00-0.03); Imm Gran Pct Auto 0.2 % (0.0-0.4); Lymphocytes Absolute Auto 2.3 X10*3/uL (1.2-4.9); Lymphocytes Percent Auto 26.1 % (20-40); Mean Corpuscular HGB Conc 35.8 g/dl (31.0-36.0); Mean Corpuscular Hemoglobin 30.4 pg (27.0-33.0); Mean Corpuscular Volume 84.8 fL (80.0-98.0); Mean Platelet Volume 10.4 fL (9.4-12.4); Monocytes Absolute Auto 0.5 X10*3/uL (0.1-1.2); Monocytes Percent Auto 5.9 % (2-11); Neutrophils Absolute Auto 5.7 x10*3/uL (2.0-8.3); Neutrophils Percent Auto 63.8 % (45-73); Platelet Count 283 X10*3/uL (160-400); Red Blood Count 4.81 X10*6/uL (4.60-5.80); Red Cell Distribution Width 12.3 % (11.0-16.0)
[2024-02-23 03:21] LABS: Alanine Aminotransferase 21 U/L (0-40); Albumin Level 4.6 g/dL (3.5-5.0); Alkaline Phosphatase 74 U/L (39-117); Anion Gap 15 (12-20); Aspartate Amino Transferase 21 U/L (5-37); Bilirubin Total 0.6 mg/dL (0.0-1.0); Blood Urea Nitrogen 5 mg/dL (9-16); Calcium 9.5 mg/dL (8.4-10.2); Carbon Dioxide 23 mmol/L (22-29); Chloride 106 mmol/L (96-108); Creatinine Clr Calc Pharmacy 149.3; Estimated Glomerular Filt Rate > 60; Glucose Random 119 mg/dL (60-115); Potassium 3.4 mmol/L (3.3-5.1); Sodium 141 mmol/L (135-145); Total Protein 8.1 g/dL (6.5-8.0)
[2024-02-23 05:40] VITALS: BP 138/89; PULSE 54; RESP 18; TEMP 36.7; O2SAT 99
[2024-02-23] MEDS: Acetaminophen 325 MG TABLET 650 MG PO (05:45)
[2024-02-23 08:13] VITALS: BP 141/83; PULSE 43; RESP 16; TEMP 36.6; O2SAT 100
--- NOTE | 2024-02-23 08:35 | ED.EXTPRO ---
HPI - Extremity Problem General Chief complaint: Extremity Injury, Lower Stated complaint: left foot dwollen Time Seen by Provider: 02/23/24 08:09 Source: patient Mode of arrival: ambulatory Limitations: no limitations History of Present Illness HPI Narrative: 34 yo male with no PMH here with c/o R swollen foot and pain atraumatic cannot walk and it is hard to work. No fevers, no travel. He has not had gout before. MD Complaint: extremity pain, joint swelling and joint pain Onset (ago): day(s) (Friday) Pain Consistency: constant Location: left and lower extremity Quality: aching and constant Radiation: none Relieving factors: rest Exacerbating factors: weight bearing, walking and palpation Associated symptoms: denies other symptoms Related Data Previous Rx's ?Medication ?Instructions ?Recorded cephalexin 500 mg capsule (Keflex) 500 mg PO Q6H 10 days #40 caps 10/01/20 doxycycline monohydrate 100 mg 100 mg PO BID 10 days #20 caps 10/01/20 capsule ibuprofen 800 mg tablet 800 mg PO Q8H PRN pain #14 tabs 10/01/20 amoxicillin 875 mg-potassium 1 tab PO Q12H #14 tabs 10/13/20 clavulanate 125 mg tablet (Augmentin) [id number]-vomxmqxa 1 cap PO Q6H PRN pain #14 caps 10/13/20 50 mg-300 mg-40 mg capsule (Fioricet) acetaminophen 500 mg tablet 500 mg PO Q6H PRN pain or fever 02/05/21 (Tylenol Extra Strength) #20 tabs lidocaine 5 % topical patch 1 patch topical DAILY PRN pain #30 02/05/21 (Lidoderm) ea naproxen 500 mg tablet 500 mg PO BID PRN pain 10 days #20 02/05/21 tabs amoxicillin 875 mg-potassium 1 tab PO Q12H 7 days #14 tabs 11/11/21 clavulanate 125 mg tablet (Augmentin) ciprofloxacin 0.2 %-hydrocortisone 3 drp otic (ear) left BID 7 days 11/11/21 1 % ear drops,suspension (Cipro HC) ciprofloxacin 0.2 %-hydrocortisone 3 drp otic (ear) left BID 7 days 11/11/21 1 % ear drops,suspension (Cipro HC) #10 mL ibuprofen 600 mg tablet 600 mg PO Q6H PRN pain #20 tabs 11/11/21 acetaminophen 500 mg capsule 1,000 mg (2 x 500 mg) PO Q6H PRN 11/15/21 pain #14 caps cephalexin 500 mg capsule 500 mg PO QID 7 days #28 caps 11/15/21 oxycodone 5 mg tablet 5 mg PO Q8H PRN pain #10 tabs 11/15/21 cyclobenzaprine 5 mg tablet 5 mg PO BEDTIME PRN muscle spasm 10/21/23 #10 tabs lidocaine 5 % topical patch 1 patch topical DAILY #15 ea 10/21/23 (Lidoderm) naproxen 500 mg tablet 500 mg PO Q8-12H PRN pain (scale 10/21/23 score 4-6) #10 tabs cephalexin 500 mg capsule 500 mg PO QID 7 days #28 caps 02/23/24 doxycycline hyclate 100 mg tablet 100 mg PO BID #14 tabs 02/23/24 prednisone 20 mg tablet 40 mg (2 x 20 mg) PO DAILY 4 days 02/23/24 #8 tabs Allergies Allergy/AdvReac Type Severity Reaction Status Date / Time No Known Allergies Allergy Verified 02/23/24 02:34 [No Known Allergies*] Review of Systems Review of Systems: Constitutional : No Fever, No Chills ENT/Mouth : No Ear Pain, No Hoarseness, No sore throat Eyes: No Eye Pain, No Swelling, No Redness, No Foreign Body Cardiovascular : No Chest Pain, No SOB Respiratory : No Cough, No Dyspnea Gastrointestinal : No Nausea, No Vomiting, No Diarrhea, No abdominal Pain Genitourinary : No Dysuria, No Hematuria Musculoskeletal : positive joint pain, No Myalgias, pos Joint Swelling Skin : No Skin lacerations, No rash Neuro : No Weakness, No Numbness, No Loss of Consciousness, No Dizziness, No Headache All other systems reviewed and are negative [facility] Past Medical History Attestation statement: The following information was validated with the patient. Source: old records reviewed Medical History Oppositional defiant disorder MRSA (methicillin resistant Staphylococcus aureus) ADHD No known health problems Social History Social History Substance Use Type: Marijuana Advance Directives: No Advance Directives Information Provided: Yes Physical Exam Vital Signs: Vital Signs: Last Vital Signs Temp 97.8 F 02/23/24 08:13 Pulse 43 L 02/23/24 08:13 Resp 16 02/23/24 08:13 BP 141/83 H 02/23/24 08:13 Pulse Ox 100 02/23/24 08:13 O2 Del Method Room Air 02/23/24 08:13 BMI result Body Mass Index 38.0 Appearance: Alert. Oriented X3. No acute distress. Eyes: Pupils equal, round and reactive to light. ENT: Pharynx normal. Neck: Normal inspection. Neck supple. CVS: Normal heart rate and rhythm. Pulses normal. Respiratory: No respiratory distress. Breath sounds normal. Abdomen: Soft and nontender. Skin: Skin warm and dry. Normal skin color. Normal skin turgor. Extremities: no calf swelling or ttp - swelling and pain to dorsum of R foot and R 1st MTP joint - NV intact there is no redness or warmth Neuro: Oriented X 3. No motor deficit. No sensory deficit. Medications Administered Discontinued Medications Generic Name Dose Route Start Last Admin Trade Name Marvq PRN Reason Stop Dose Admin Acetaminophen 650 mg 02/23/24 05:40 02/23/24 05:45 Acetaminophen 325 Mg Tablet PO 02/23/24 05:41 650 mg ONCE ONE Administration Medical Decision Making Medical Decision Making [facility] Narrative: 34 yo male here with atraumatic R foot pain he hs NV intact will need basic labs, xray I suspect either sprain vs underyling skin infection vs gout - given history and undifferented and hx of MRSA will start on dual abx therapy and prednisone will give precautions to return. Isolated swelling to foot no extension to the calf no signs of DVT Differential Diagnosis Differential Diagnoses: The differential diagnosis associated with the presentation includes cellulitis, gout Admission/Observation Consideration of admission/observation: Escalation of care including admission/observation considered not toxic can be managed as outpatient Lab Data [facility] Lab Attestation statement: I reviewed the patient's lab results. 02/23/24 03:03 02/23/24 03:03 Labs: Lab Results 02/23/24 Range/Units 03:03 WBC 9.0 (4.8-10.8) X10*3/uL RBC 4.81 (4.60-5.80) X10*6/uL Hgb 14.6 (14.0-18.0) g/dl Hct 40.8 L (42.0-52.0) % MCV 84.8 (80.0-98.0) fL MCH 30.4 (27.0-33.0) pg MCHC 35.8 (31.0-36.0) g/dl RDW 12.3 (11.0-16.0) % Plt Count 283 (160-400) X10*3/uL MPV 10.4 (9.4-12.4) fL Immature Gran % (Auto) 0.2 (0.0-0.4) % Neut % (Auto) 63.8 (45-73) % Lymph % (Auto) 26.1 (20-40) % [place] % (Auto) 5.9 (2-11) % Eos % (Auto) 2.9 (0-4) % Baso % (Auto) 1.1 (0-2) % Lymph # (Auto) 2.3 (1.2-4.9) X10*3/uL [place] # (Auto) 0.5 (0.1-1.2) X10*3/uL Eos # (Auto) 0.3 (0.0-0.4) X10*3/uL Baso # (Auto) 0.1 (0.0-0.2) X10*3/uL Abs Immat Gran (auto) 0.02 (0.00-0.03) X10*3/uL Absolute Neuts (auto) 5.7 (2.0-8.3) x10*3/uL Absolute Nucleated RBC 0.000 (0.0-0.012) X10*3/uL Nucleated RBC % (auto) 0.0 (0.0-0.2) /100WBC Sodium 141 (135-145) mmol/L Potassium 3.4 (3.3-5.1) mmol/L Chloride 106 (96-108) mmol/L Carbon Dioxide 23 (22-29) mmol/L Anion Gap 15 (12-20) BUN 5 L (9-16) mg/dL Creatinine 0.86 (0.5-1.4) mg/dL Estim Creat Clear Calc 149.3 Estimated GFR > 60 Random Glucose 119 H (60-115) mg/dL Calcium 9.5 (8.4-10.2) mg/dL Total Bilirubin 0.6 (0.0-1.0) mg/dL AST 21 (5-37) U/L ALT 21 (0-40) U/L Alkaline Phosphatase 74 (39-117) U/L Total Protein 8.1 H (6.5-8.0) g/dL Albumin 4.6 (3.5-5.0) g/dL Independent Interpretation I performed an independent interpretation of an: Plain X-Ray (no fracture) Radiology Impression Discussion of test interpretation with radiology: I have reviewed the radiologist's reading. External Record Review External record reviewed: Office record Prescription Management I considered prescription management with: Antibiotic and Other Discharge Plan Discharge Clinical Impression: Localized swelling of right foot Patient Disposition: Home, Self-Care Instructions: Swollen Joint (ED) Additional Instructions: it is hard to say if this is infection vs gout we will treat you for both. return if not better or worsening give it 48 hours. take medications with full stomach of food. keep off foot for next 3 days. Prescriptions: New cephalexin 500 mg capsule 500 mg PO QID 7 Days Qty: 28 0RF prednisone 20 mg tablet 40 mg PO DAILY 4 Days Qty: 8 0RF doxycycline hyclate 100 mg tablet 100 mg PO BID Qty: 14 0RF No Action amoxicillin-pot clavulanate [Augmentin] 875-125 mg tablet 1 tab PO Q12H Qty: 14 0RF [id number] [Fioricet] 50-300-40 mg capsule 1 cap PO Q6H PRN (Reason: pain) Qty: 14 0RF ibuprofen 800 mg tablet 800 mg PO Q8H PRN (Reason: pain) Qty: 14 0RF doxycycline monohydrate 100 mg capsule 100 mg PO BID 10 Days Qty: 20 0RF cephalexin [Keflex] 500 mg capsule 500 mg PO Q6H 10 Days Qty: 40 0RF acetaminophen [Tylenol Extra Strength] 500 mg tablet 500 mg PO Q6H PRN (Reason: pain or fever) Qty: 20 0RF lidocaine [Lidoderm] 5 % adhesive patch,medicated 1 patch topical DAILY MDD remove after 12 hours PRN (Reason: pain) Qty: 30 0RF Rx Instructions: leave on most painful area for up to 12 hrs naproxen 500 mg tablet 500 mg PO BID PRN (Reason: pain) 10 Days Qty: 20 0RF amoxicillin-pot clavulanate [Augmentin] 875-125 mg tablet 1 tab PO Q12H 7 Days Qty: 14 0RF Cipro HC 0.2-1 % drops,suspension 3 drp otic (ear) left BID 7 Days 0RF Cipro HC 0.2-1 % drops,suspension 3 drp otic (ear) left BID 7 Days Qty: 10 0RF ibuprofen 600 mg tablet 600 mg PO Q6H PRN (Reason: pain) Qty: 20 0RF acetaminophen 500 mg capsule 1,000 mg PO Q6H PRN (Reason: pain) Qty: 14 0RF cephalexin 500 mg capsule 500 mg PO QID 7 Days Qty: 28 0RF oxycodone 5 mg tablet 5 mg PO Q8H PRN (Reason: pain) Qty: 10 0RF lidocaine [Lidoderm] 5 % adhesive patch,medicated 1 patch topical DAILY Qty: 15 0RF Rx Instructions: leave on most painful area for up to 12 hrs naproxen 500 mg tablet 500 mg PO Q8-12H PRN (Reason: pain (scale score 4-6)) Qty: 10 0RF cyclobenzaprine 5 mg tablet 5 mg PO BEDTIME PRN (Reason: muscle spasm) Qty: 10 0RF Stand Alone Forms: Work/School Release Print Language: Cypriot
[2024-02-23] MEDS: predniSONE 20 MG TABLET 60 MG PO (09:05)
[2024-02-23] MEDS: cephALEXin 500 MG CAPSULE PO (09:05)
[2024-02-23 09:11] VITALS: BP 141/83; PULSE 63; RESP 16; TEMP 36.6; O2SAT 100
== END 2024-02-23 09:13 | disposition home or self-care (01) ==
PROVIDERS: Emergency Provider Emergency Medicine
DX: R22.41 Localized swelling, mass and lump, right lower limb (principal)
CPT/HCPCS: 36415; 73620; 80053; 85025; 99283

== ENCOUNTER 2025-10-13 10:19 | Outpatient (AMB) | payer OTHER, SELFPAY ==
--- NOTE | 2025-10-13 10:23 | A.OFFPC_ITS ---
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 Lump on back: The patient reports a large lump on his upper back that has been present for at least 5 or 6 years. He states it is not painful but is annoying, gets in the way sometimes, and is getting bigger, prompting his visit to have it taken care of. The lump was previously evaluated at an ER, where he was told not to worry about it since it was not bothering him. History of Attention-Deficit Hyperactivity Disorder (ADHD): The patient has a history of ADHD and ODD diagnosed as a child, for which he previously took Adderall. He no longer takes medication or sees a therapist for these conditions. History of MRSA infection: Approximately 10 years ago, the patient had a MRSA infection on his right ankle resulting from a road rash injury. This required surgical irrigation and debridement without hardware placement. History of Acne: The patient had acne on his back in high school, which resulted in significant scarring. He reports that a prescribed benzoyl peroxide cream from an ER infected the acne, and he was later treated with Accutane by a whiskey filterer. Substance Use: The patient has been vaping oils and vapes from a dispensary for the past 2 years. He also reports smoking marijuana since he was 17 years old and denies any other drug use. Surgical History: - Irrigation and debridement of right an kle for MRSA infection, approximately 10 years ago. Medications: - The patient is not currently taking an y maintenance medications. - History of taking Adderall as a child for ADHD. - History of taking Accutane for acne. 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 - Substance Use: Has been vaping for 2 y ears, using oils and vapes from a dispensary. - Substance Use: Has been smoking weed s tammy age 17. - Substance Use: Denies use of other iglesia gs. - Sexual History: He is sexually active. Family History: No family history was discussed. Diagnostic Results: No diagnostic results were reviewed during the visit. Past Medical History - Has not seen a primary care doctor sin ce childhood. - MRSA infection of the right ankle from a road rash, treated with surgery about 10 years ago. - ADHD and ODD, diagnosed as a child. - Hospitalization as a child for mononuc leosis and pneumonia. - History of back acne treated with Accu tane. - No known allergies. Health Maintenance - Baseline laboratory studies will be or dered, including a CBC, CMP, lipid panel, HbA1c, TSH, vitamin B12, folate, and vitamin D. - Screening for HIV, hepatitis B, and he patitis C will be performed. - A follow-up appointment is scheduled i n two weeks to review the lab results. [facility] Medical History (Updated 10/13/25 @ 11:05 by Servando Hernandez MD) History of MRSA infection Substance use History of acne Localized swelling, mass and lump, trunk Oppositional defiant disorder MRSA (methicillin resistant Staphylococcus aureus) ADHD No known health problems Surgical History (Updated 10/13/25 @ 10:30 by Adama Vu CMA) History of ankle surgery Family History (Updated 10/13/25 @ 10:31 by Adama Vu CMA) Father Colon cancer Epilepsy Social History (Updated 10/13/25 @ 10:32 by Adama Vu CMA) Housing: House Alcohol intake: current Alcohol intake frequency: holidays/special occasions only Alcohol type: beer Comment: rarely Patient Tobacco Use Status: Never used Tobacco e-Cigarette/Vaping Use: Currently Using Substance Use Type: Marijuana service: No Current occupational status: employed 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 1. Little interest or pleasure in doing things: not at all 2. Feeling down, depressed, or hopeless: not at all 3. Trouble falling or staying asleep, or sleeping too much: not at all 4. Feeling tired or having little energy: not at all 5. Poor appetite or overeating: not at all 6. Feeling bad about yourself - or that you are a failure or have let yourself or your family down: not at all 7. Trouble concentrating on things, such as reading the newspaper or watching television: not at all 8. Moving or speaking so slowly that other people could have noticed. Or the opposite - being so fidgety or restless that you have been moving around a lot more than usual: not at all 9. Thoughts that you would be better off or of hurting yourself in some way: not at all Total score: 0 Depression Screening Interpretation: Negative Depression Screening Done: Yes 58443 - PHQ-9 Billing: Yes Source: Developed by Drs. Valdemar Beck, Gwendolyn Berrios, Som Castorena and colleagues, with an educational saulo from [employer]. Thrive Questionnaire Date Thrive assessed: 10/13/25 I am a: Patient What is your living situation today?: I have a steady place to live Within the past 12 months, did the food you bought not last and you didn't have the money to get more?: Never true Within the past 12 months, did you worry whether your food would run out before you got money to buy more?: Never true Do you have trouble paying for medicines?: No Do you have trouble getting transportation to medical appointments?: No Do you have trouble paying your heating and electricity bill?: No Do you have trouble taking care of your child, family member or friend?: No Do you have trouble with day-to-day activities such as bathing, preparing meals, shopping, managing finances, etc.?: No Are you currently unemployed and looking for a job?: No Are you interested in more education?: No Please select the resources that you would like help with: None Currently or been in a relationship where the following occur: No concerns reported THRIVE Score: 0 AUDIT C Alcohol Use Questionnaire (AUDIT-C) 1. How often do you have a drink containing alcohol?: Monthly or less 2. How many drinks containing alcohol do you have on a typical day when you are drinking?: 1 or 2 3. How often do you have six or more drinks on one occasion?: Never Total Score: 1 MARCK-7 AMB Questionnaire MARCK-7 Date MARCK - 7 assessed: 10/13/25 Feeling nervous, anxious, or on edge: 0 = Not at all Not being able to stop or control worryin = Not at all Worrying too much about different things: 0 = Not at all Trouble relaxin = Not at all Being so restless that it is hard to sit still: 0 = Not at all Becoming easily annoyed or irritable: 1 = Several days Feeling afraid as if something awful might happen: 0 = Not at all Total MARCK-7 score (0-4 normal; 5-9 mild; 10-14 moderate; 15-21 severe): 1 Source: Developed by Drs. Valdemar Beck, Gwendolyn Berrios, Som Castorena and colleagues, with an educational saulo from [employer]. MARCK-7 Assessment Billing MARCK-7 Assessment Tool: MARCK-7 Assessment 49752 Review of Systems Narrative Review of Systems - Constitutional: Reports sleeping well. - Integumentary: Reports a non-painful, annoying lump on his back which he states is getting bigger. - Gastrointestinal: Reports normal urination and bowel movements. - Musculoskeletal: Denies lower leg swelling. 10-point ROS reviewed and negative except as noted in HPI Physical exam (Primary Care) Vital Signs: Last Vital Signs Temp 98 F 10/13/25 10:32 Pulse 51 10/13/25 10:32 Resp 16 10/13/25 10:32 BP 110/53 L 10/13/25 10:32 Pulse Ox 99 10/13/25 10:32 Oxygen Delivery Method Room Air 10/13/25 10:32 BMI result Body Mass Index 33.6 Tobacco/Smoking Status: Tobacco use Status Tobacco use date assessed 10/13/25 10/13/25 10:34 Patient Tobacco Use Status Never used Tobacco 10/13/25 10:34 e-Cigarette/Vaping Use Currently Using 10/13/25 10:34 PHQ-9: PHQ-9 Score PHQ-9: Total score 0 10/13/25 10:36 Depression Screening Interpretation: Negative Thrive Assessment: Date of Thrive Assessment Date Thrive assessed 10/13/25 10/13/25 10:27 Currently or been in a relationship where the following occur: No concerns reported Narrative Physical Exam General: Well-appearing, in no acute distress. Vital signs: Within normal limits. HEENT: Normocephalic, atraumatic. PERRLA, EOMI. Conjunctiva clear, sclera anicteric. Oropharynx clear, mucous membranes moist. TMs intact bilaterally. Neck: Supple, no lymphadenopathy, no thyromegaly, no JVD or carotid bruits. Cardiovascular: RRR, normal S1/S2, no murmurs, rubs, or gallops. Peripheral pulses 2+ and symmetric. No edema. Respiratory: Lungs clear to auscultation bilaterally, no wheezes, rales, or rhonchi. Normal effort. Abdomen: Soft, non-tender, non-distended. Normoactive bowel sounds. No hepatosplenomegaly, no masses. MSK: Full range of motion, no joint swelling or deformity. Normal gait. Skin: Warm, dry, intact. No rashes, lesions, or pallor. Notable for a large lump on the upper back, present for 5-6 years, non-painful but aesthetically concerning. Acne scars present on the back. Neuro: Alert and oriented x3. Cranial nerves II-XII intact. Strength 5/5 throughout. Sensation intact. Reflexes 2+ symmetric. Normal coordination and gait. Psych: Appropriate mood and affect. Normal judgment and insight. History of ADHD and ODD, previously on Adderall, not currently on medication or in therapy. Coding Level of Care Code New Pt Level 4 (22805) Diagnoses ADHD F90.9 Localized swelling, mass and lump, trunk R22.2 History of acne Z87.2 Substance use F19.90 History of MRSA infection Z86.14 Additional Codes MARCK-7 Assessment Billing - MARCK-7 Assessment Tool: MARCK-7 Assessment 16528 ([id number]) PHQ-9 - 66021 - PHQ-9 Billing: Yes ([id number]) Assessment & Plan Assessment & Plan (1) ADHD: Code(s): F90.9 - Attention-deficit hyperactivity disorder, unspecified type Category: Medical (2) Localized swelling, mass and lump, trunk: Code(s): R22.2 - Localized swelling, mass and lump, trunk Category: Medical (3) History of acne: Code(s): Z87.2 - Personal history of diseases of the skin and subcutaneous tissue Category: Medical (4) Substance use: Code(s): F19.90 - Other psychoactive substance use, unspecified, uncomplicated Category: Medical (5) History of MRSA infection: Code(s): Z86.14 - Personal history of Methicillin resistant Staphylococcus aureus infection Category: Medical Plan Consent The patient consented to having photographs taken of his back to be uploaded to his chart. He declined a chlamydia and gonorrhea screen. Patient was informed and verbally consented to the use of an ambient scribe for clinic note documentation during this visit. Plan 1. Back Lump - The mass will be measured and photographed for the patient's chart. - A referral will be sent to general surgery for further evaluation and management. - The general surgery team will determine the need for any imaging. Discussion Notes I discussed with the patient the plan to address the lump on his back, explaining that he will be referred to General Surgery for further evaluation. I explained that as he is establishing care, we would order a full set of baseline labs, including screenings for HIV and hepatitis, and he declined screening for other STIs. I obtained his permission to photograph the back mass for his medical record. We scheduled a follow-up visit in two weeks to review these results. Patient Instructions - Please go to the lab to have your blood drawn for the tests we ordered. - We will send a referral to a general surgeon who will contact you to schedule an appointment to look at the lump on your back. - The surgeon will decide if any other tests, like x-rays or scans, are needed. - Please return to the clinic in two weeks to go over your lab results with me. Medical Decision Making The patient is a 35-year-old male who presents to establish primary care and for evaluation of a chronic, enlarging, non-painful lump on his upper back, present for approximately 5-6 years. Given the long-standing nature and recent growth of the back mass, referral to General Surgery for definitive evaluation and management is warranted. The decision for any imaging will be deferred to the consulting surgical team. As the patient has not had routine primary care since childhood, a comprehensive baseline workup is indicated to screen for common chronic diseases and establish his health status. This includes ordering a CBC, CMP, lipid panel, HbA1c, thyroid function, and canseco vitamin levels, in addition to screening for HIV and viral hepatitis. A follow-up in two weeks will allow for review of these results and continued management. Total Time Statement 30 min Total time spent caring for the patient today includes pre-visit chart review, documentation, review of laboratory and diagnostic imaging results, medication reconciliation, medically necessary evaluation, counseling on diagnoses, care coordination, ordering appropriate tests and medications, review of tests performed by other providers, reporting test results to the patient, and communication with other healthcare providers. Orders: Orders 2 Syphilis Screen Today Z13.9 - Encounter for screening, unspecified Comprehensive Met. Panel Today Z13.9 - Encounter for screening, unspecified Hepatitis C Antibody Today Z13.9 - Encounter for screening, unspecified HIV Ab/Ag Today Z13.9 - Encounter for screening, unspecified UA CC w/rflx Micro + Cult Today Z13.9 - Encounter for screening, unspecified Lipid Panel Today Z13.9 - Encounter for screening, unspecified Complete Blood Count Auto Diff Today Z13.9 - Encounter for screening, unspecified Hepatitis B Surface Antigen Today Z13.9 - Encounter for screening, unspecified TSH reflex Free T4 Today Z13.9 - Encounter for screening, unspecified Vitamin B12 and Folate Today Z13.9 - Encounter for screening, unspecified Hemoglobin A1c Today Z13.9 - Encounter for screening, unspecified Magnesium Today Z13.9 - Encounter for screening, unspecified Vitamin D 1,25 dihydroxy Today Z13.9 - Encounter for screening, unspecified Hepatitis B Surface Antibody Today Z13.9 - Encounter for screening, unspecified Referrals 2 General Surgery Referral R22.2 - Localized swelling, mass and lump, trunk Medications: Discontinued 2 cephalexin (Keflex) Discontinued Reason: Patient no longer taking 500 mg PO Q6H 10 days 40 caps 0RF ibuprofen Discontinued Reason: Patient no longer taking 800 mg PO Q8H PRN 14 tabs 0RF pain amoxicillin-pot clavulanate 875-125 mg (Augmentin) Discontinued Reason: Patient no longer taking 1 tab PO Q12H 14 tabs 0RF plcscpulbw-lwvzwmufpqsnd-avxk 50-300-40 mg (Fioricet) Discontinued Reason: Patient no longer taking 1 cap PO Q6H PRN 14 caps 0RF pain acetaminophen (Tylenol Extra Strength) Discontinued Reason: Patient no longer taking 500 mg PO Q6H PRN 20 tabs 0RF pain or fever naproxen Discontinued Reason: Patient no longer taking 500 mg PO BID 10 days PRN 20 tabs 0RF pain doxycycline monohydrate Discontinued Reason: Patient no longer taking 100 mg PO BID 10 days 20 caps 0RF lidocaine 5% (Lidoderm) leave on most painful area for up to 12 hrs Discontinued Reason: Patient no longer taking 1 patch topical DAILY PRN 30 ea 0RF pain MDD remove after 12 hours amoxicillin-pot clavulanate 875-125 mg (Augmentin) Discontinued Reason: Patient no longer taking 1 tab PO Q12H 7 days 14 tabs 0RF acetaminophen Discontinued Reason: Patient no longer taking 1,000 mg (2 x 500 mg) PO Q6H PRN 14 caps 0RF pain ciprofloxacin-hydrocortisone 0.2-1 % (Cipro HC) Discontinued Reason: Patient no longer taking 3 drps otic (ear) left BID 7 days 10 mL 0RF ibuprofen Discontinued Reason: Patient no longer taking 600 mg PO Q6H PRN 20 tabs 0RF pain cephalexin Discontinued Reason: Patient no longer taking 500 mg PO QID 7 days 28 caps 0RF oxycodone Discontinued Reason: Patient no longer taking 5 mg PO Q8H PRN 10 tabs 0RF pain cyclobenzaprine Discontinued Reason: Patient no longer taking 5 mg PO BEDTIME PRN 10 tabs 0RF muscle spasm lidocaine 5% (Lidoderm) leave on most painful area for up to 12 hrs Discontinued Reason: Patient no longer taking 1 patch topical DAILY 15 ea 0RF doxycycline hyclate Discontinued Reason: Patient no longer taking 100 mg PO BID 14 tabs 0RF prednisone Discontinued Reason: Patient no longer taking 40 mg (2 x 20 mg) PO DAILY 4 days 8 tabs 0RF naproxen Discontinued Reason: Patient no longer taking 500 mg PO Q8-12H PRN 10 tabs 0RF pain (scale score 4-6) cephalexin Discontinued Reason: Patient no longer taking 500 mg PO QID 7 days 28 caps 0RF
[2025-10-13 10:32] VITALS: BP 110/53; PULSE 51; RESP 16; TEMP 36.6; O2SAT 99; BMI 33.6
--- OUTSIDE RECORDS SUMMARY | 2025-10-13 12:29 | XMS_ITS | Clinical Summary ---
Author Organization [facility] Address [address] [place] [address] Phone Care Team Providers Care Jet Wiper Name Role Phone Physician, No Pcp Primary Care Provider Unavaila ble Allergies No known active allergies Social History Tobacco Use Types Packs/Day Years Used Date Smoking Tobacco: Never Assessed Sex and Gender Information Value Date Recorded Sex Assigned at Not on file Legal Sex Male 10:24 PM EST Gender Identity Not on file Sexual Orientation Not on file Last Filed Vital Signs Vital Sign Reading Time Taken Comments Blood Pressure 155/83 10/22/2024 3:49 PM EST Pulse 57 10/22/2024 3:49 PM EST Temperature 36.8 C (98.2 F) 10/22/2024 3:49 PM EST Respiratory Rate 18 10/22/2024 3:49 PM EST Oxygen Saturation 98% 10/22/2024 3:49 PM EST Inhaled Oxygen Concentration - - Weight 113 kg (250 lb) 10/22/2024 3:49 PM EST Height 172.7 cm (5' 8 ) 10/22/2024 3:49 PM EST Body Mass Index 38.01 10/22/2024 3:49 PM EST Plan of Treatment Health Maintenance Due Date Last Done Comments HPV Vaccines (1 - 3-dose SCDM series) 2018 HIV Screening 10/13/2022 Hepatitis C Screening 10/13/2022 Social Influencers of Health Screening 10/13/2022 DTaP,Tdap,and Td Vaccines (7 - Td or Tdap) 02/15/2024 02/14/2014, 12/12/2000, 10/09/1995, Additional history exists Depression Screening 11/10/2024 COVID-19 Vaccine ( season) 2025 Influenza Vaccine (#1) 2025 RSV Immunization Adult Patients (1 - 1-dose 75+ series) 2066 HIB Vaccines Completed 05/09/1992, 08/10, 1991, Additional history exists IPV Vaccines Completed 10/09/1995, 12/12, 1991, Additional history exists MMR Vaccines Completed 03/09/1997, 05/09/1992 Hepatitis B Vaccines Completed 03/21/1999, 01/07/1996, 07/10/1995 Hepatitis A Vaccines Aged Out No long er eligible based on patient's age to complete this topic Meningococcal ACWY Vaccine Aged Out N o longer eligible based on patient's age to complete this topic Meningococcal B Vaccine Aged Out No l onger eligible based on patient's age to complete this topic Pneumococcal Vaccine: Pediatrics (0 to 5 Years) and At-Risk Patients (6 to 49 Years) Aged Out No longer eligible based on patient's age to complete this topic RSV Immunization Patients Under 20 months Aged Out No longer eligible based on patient's age to complete this topic Varicella Vaccines Aged Out No longer eligible based on patient's age to complete this topic Insurance [place] [address] [employer] Care Teams Jet Wiper Relationship Specialty Start Date End Date Physician, No Pcp PCP - General 10/22/24
== END 2025-10-13 10:55 | disposition home or self-care (01) ==
LOC: HO.HMCFMS 10:20
PROVIDERS: Visit Provider Student in an Organized Health Care Education/Training Program
DX: F90.9 Attention-deficit hyperactivity disorder, unspecified type (principal); R22.2 Localized swelling, mass and lump, trunk; Z87.2 Personal history of diseases of the skin and subcutaneous tissue; F19.90 Other psychoactive substance use, unspecified, uncomplicated; Z86.14 Personal history of Methicillin resistant Staphylococcus aureus infection

== ENCOUNTER 2025-10-13 10:19 | Outpatient (REF) | payer OTHER, SELFPAY ==
[2025-10-13 13:30] LABS: MANUAL DIFF FLAG NO
[2025-10-13 13:42] LABS: Hematocrit 40.3 % (42.0-52.0); Hemoglobin 13.6 g/dl (14.0-18.0); Imm Gran Abs Auto 0.01 X10*3/uL (0.00-0.03); Imm Gran Pct Auto 0.1 % (0.0-0.4); Lymphocytes Absolute Auto 2.0 X10*3/uL (1.2-4.9); Mean Corpuscular HGB Conc 33.7 g/dl (31.0-36.0); Mean Corpuscular Hemoglobin 29.8 pg (27.0-33.0); Mean Corpuscular Volume 88.2 fL (80.0-98.0); NRBC Abs Auto 0.000 X10*3/uL (0.0-0.012); NRBC Pct Auto 0.0 /100WBC (0.0-0.2); Platelet Count 264 X10*3/uL (160-400); Red Blood Count 4.57 X10*6/uL (4.60-5.80); White Blood Count 8.1 X10*3/uL (4.8-10.8)
[2025-10-13 17:55] LABS: Appearance Urine Turbid; Glucose Urine UA Negative (Negative); PH 5.0 (5.0-9.0); Specific Gravity - Urine 1.020 (1.005-1.025)
[2025-10-13 18:29] LABS: Alanine Aminotransferase 23 U/L (0-40); Albumin Level 5.2 g/dL (3.5-5.0); Alkaline Phosphatase 62 U/L (39-117); Anion Gap 13 (12-20); Aspartate Amino Transferase 29 U/L (5-37); Blood Urea Nitrogen 11 mg/dL (9-16); Calcium 9.7 mg/dL (8.4-10.2); Carbon Dioxide 24 mmol/L (22-29); Chloride 107 mmol/L (96-108); Cholesterol 195 mg/dL (<200); Estimated Glomerular Filt Rate > 60; HDL Cholesterol 34 mg/dL (>40); Magnesium 2.3 mg/dL (1.6-2.6); Potassium 4.3 mmol/L (3.3-5.1); Sodium 140 mmol/L (135-145); Total Protein 8.2 g/dL (6.5-8.0); Triglycerides 183 mg/dL (<150)
[2025-10-13 18:54] LABS: Folate 10.7 ng/mL (> or = 4.0); Vitamin B12 254 pg/mL (200-900)
[2025-10-14 05:54] LABS: HBS Num1 80.77 mIU/mL (0-7.99); HBsAGNum1 0.55 S/CO (0.00-0.99); HIV Num 1 0.04 S/CO (0.00-0.99); Hepatitis B Surface Antigen Negative (Negative); ~HepC Num1 0.09 S/CO (0.00-0.79); ~Hepatitis B Surface Antibody REACTIVE (Nonreactive); ~Hepatitis C Antibody Nonreactive (Nonreactive)
[2025-10-14 05:55] LABS: Syphilis Screen Nonreactive (Nonreactive)
[2025-10-18 06:59] LABS: VITAMIN D (1,25 OH) D3 25 pg/mL; Vit D (1,25-Dihydroxy) Total 25 pg/mL (18-72); Vitamin D (1,25 OH) D2 <8 pg/mL
== END 2025-10-13 10:20 | disposition home or self-care (01) ==
LOC: HO.HKASLDS 10:19
PROVIDERS: PCP Student in an Organized Health Care Education/Training Program; Visit Provider Student in an Organized Health Care Education/Training Program
DX: Z13.9 Encounter for screening, unspecified (principal); F90.9 Attention-deficit hyperactivity disorder, unspecified type; R22.2 Localized swelling, mass and lump, trunk; Z87.2 Personal history of diseases of the skin and subcutaneous tissue; F19.90 Other psychoactive substance use, unspecified, uncomplicated; Z86.14 Personal history of Methicillin resistant Staphylococcus aureus infection
CPT/HCPCS: 36415; 80053; 80061; 81003; 82607; 82652; 82746; 83036; 83735; 84443; 85025; 86706; 86780; 86803; 87340; 87389

== ENCOUNTER 2025-11-01 08:45 | Outpatient (AMB) | payer OTHER, SELFPAY ==
[2025-11-01 08:48] VITALS: BP 148/87; PULSE 69; TEMP 36.7; O2SAT 97; BMI 33.4
--- NOTE | 2025-11-01 08:48 | MHC.PC.OV ---
Vital Signs 11/01/25 08:48 Height 5 ft 9 in Weight 226 lb 6 oz BMI 33.4 BP 148/87 H Blood Pressure Location Rt brachial Position Sitting Pulse 69 Pulse Source Pulse Oximeter Temp 98.1 F Temp Source Oral Pulse Oximetry (%) 97 Oxygen Delivery Method Room Air Intake Visit Reasons: 2 wk - lab review Accompanied by: Self / Same As Patient Allergies No Known Allergies (No Known Allergies*) Allergy (Verified 11/01/25 08:49) Medication List - Last Reconciled 11/01/25 by Servando Hernandez MD No Known Home Meds Tobacco use date assessed: 11/01/25 Dental Screening Dental Screen Date: 11/01/25 Did you have a dental visit in the last 12 months?: Yes HPI HPI Comments History of Present Illness Details History of Present Illness The patient is a 35 year old male presenting for review of laboratory results and follow-up on elevated blood pressure. Elevated Blood Pressure: The patient has a history of elevated blood pressure, with a reading of 140/76 at his last visit and 148/87 at today's visit. Dyslipidemia: The patient's diet has been poor, contributing to elevated triglycerides of 183 mg/dL, LDL of 125 mg/dL, and low HDL of 35 mg/dL. He has recently made dietary changes, including cutting out soda and pizza, and has lost approximately 20 pounds. Anemia: Recent lab results show slightly low red blood cells, hemoglobin, and hematocrit, which are attributed to a poor diet lacking in iron. The patient reports that his diet sucks and he often does not eat until 8 p.m. Vitamin B12 Deficiency: The patient's vitamin B12 level is on the low side at 254. Social History: - Nutrition: The patient reports a poor diet, often not eating until 8 p.m., but has recently cut out soda and pizza and lost 20 pounds. - Stress: The patient is experiencing stress due to the anniversary of his father's . Family History: - Father: History of diabetes, epilepsy, and colon cancer. Diagnostic Results: - Complete Blood Count (CBC): Red blood cells, hemoglobin, and hematocrit are slightly low. - Comprehensive Metabolic Panel (CMP): Sodium, potassium, kidney function, and liver function are normal. - Glucose/A1c: Glucose and A1c levels are normal, indicating no prediabetes or diabetes. - Lipid Panel: Triglycerides are elevated at 183 mg/dL, total cholesterol is 195 mg/dL, LDL is elevated at 125 mg/dL, and HDL is low at 35 mg/dL. - Vitamins: Vitamin B12 is low at 254; Vitamin D and folate levels are good. - Thyroid Function: Normal. - Urinalysis: Normal. - Infectious Disease Screen: Syphilis, HIV, Hepatitis B, and Hepatitis C are all negative. Past Medical History - History of elevated blood pressure reading of 140/76 on a prior visit. Health Maintenance - STD screening for syphilis, HIV, hepatitis B, and hepatitis C were negative. - Discussed dietary modifications to improve anemia and dyslipidemia, including increasing iron-rich foods and avoiding soda and high-fat foods. [facility] Medical History History of MRSA infection Substance use History of acne Localized swelling, mass and lump, trunk Oppositional defiant disorder MRSA (methicillin resistant Staphylococcus aureus) ADHD No known health problems Surgical History History of ankle surgery Family History Father Colon cancer Epilepsy Social History Housing: House Alcohol intake: current Alcohol intake frequency: holidays/special occasions only Alcohol type: beer Comment: rarely Patient Tobacco Use Status: Never used Tobacco Tobacco use type: Smokeless Tobacco e-Cigarette/Vaping Use: Currently Using Substance Use Type: Marijuana service: No Current occupational status: employed 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 1. Little interest or pleasure in doing things: not at all 2. Feeling down, depressed, or hopeless: not at all 3. Trouble falling or staying asleep, or sleeping too much: not at all 4. Feeling tired or having little energy: not at all 5. Poor appetite or overeating: not at all 6. Feeling bad about yourself - or that you are a failure or have let yourself or your family down: not at all 7. Trouble concentrating on things, such as reading the newspaper or watching television: not at all 8. Moving or speaking so slowly that other people could have noticed. Or the opposite - being so fidgety or restless that you have been moving around a lot more than usual: not at all 9. Thoughts that you would be better off or of hurting yourself in some way: not at all Total score: 0 Depression Screening Interpretation: Negative Depression Screening Done: Yes 82184 - PHQ-9 Billing: Yes Source: Developed by Drs. Valdemar Beck, Gwendolyn Berrios, Som Castorena and colleagues, with an educational saulo from [employer]. Thrive Questionnaire Date Thrive assessed: 11/01/25 I am a: Patient What is your living situation today?: I have a steady place to live Within the past 12 months, did the food you bought not last and you didn't have the money to get more?: Never true Within the past 12 months, did you worry whether your food would run out before you got money to buy more?: Never true Do you have trouble paying for medicines?: No Do you have trouble getting transportation to medical appointments?: No Do you have trouble paying your heating and electricity bill?: No Do you have trouble taking care of your child, family member or friend?: No Do you have trouble with day-to-day activities such as bathing, preparing meals, shopping, managing finances, etc.?: No Are you currently unemployed and looking for a job?: No Are you interested in more education?: No Currently or been in a relationship where the following occur: No concerns reported THRIVE Score: 0 AUDIT C Alcohol Use Questionnaire (AUDIT-C) 1. How often do you have a drink containing alcohol?: Monthly or less 2. How many drinks containing alcohol do you have on a typical day when you are drinking?: 1 or 2 3. How often do you have six or more drinks on one occasion?: Never Total Score: 1 MARCK-7 AMB Questionnaire MARCK-7 Date MARCK - 7 assessed: 11/01/25 Feeling nervous, anxious, or on edge: 0 = Not at all Not being able to stop or control worryin = Not at all Worrying too much about different things: 0 = Not at all Trouble relaxin = Not at all Being so restless that it is hard to sit still: 0 = Not at all Becoming easily annoyed or irritable: 1 = Several days Feeling afraid as if something awful might happen: 0 = Not at all Total MARCK-7 score (0-4 normal; 5-9 mild; 10-14 moderate; 15-21 severe): 1 Source: Developed by Drs. Valdemar Beck, Gwendolyn Berrios, Som Castorena and colleagues, with an educational saulo from [employer]. MARCK-7 Assessment Billing MARCK-7 Assessment Tool: MARCK-7 Assessment 30347 Review of Systems Narrative Review of Systems - Cardiovascular: Reports history of elevated blood pressure readings. 10-point ROS reviewed and negative except as noted in HPI Physical exam (Primary Care) Vital Signs: Last Vital Signs Temp 98.1 F 11/01/25 08:48 Pulse 69 11/01/25 08:48 BP 148/87 H 11/01/25 08:48 Pulse Ox 97 11/01/25 08:48 Oxygen Delivery Method Room Air 11/01/25 08:48 BMI result Body Mass Index 33.4 Tobacco/Smoking Status: Tobacco use Status Tobacco use date assessed 10/13/25 10/13/25 10:34 Patient Tobacco Use Status Never used Tobacco 10/25/25 09:36 Tobacco use type Smokeless Tobacco 10/25/25 09:36 e-Cigarette/Vaping Use Currently Using 10/25/25 09:36 Depression Screening Interpretation: Negative Thrive Assessment: Date of Thrive Assessment Date Thrive assessed 10/13/25 10/13/25 10:27 Currently or been in a relationship where the following occur: No concerns reported Narrative Physical Exam General: Well-appearing, in no acute distress. Vital signs: Blood pressure elevated at 148/87. HEENT: Normocephalic, atraumatic. PERRLA, EOMI. Conjunctiva clear, sclera anicteric. Oropharynx clear, mucous membranes moist. TMs intact bilaterally. Neck: Supple, no lymphadenopathy, no thyromegaly, no JVD or carotid bruits. Cardiovascular: RRR, normal S1/S2, no murmurs, rubs, or gallops. Peripheral pulses 2+ and symmetric. No edema. Respiratory: Lungs clear to auscultation bilaterally, no wheezes, rales, or rhonchi. Normal effort. Abdomen: Soft, non-tender, non-distended. Normoactive bowel sounds. No hepatosplenomegaly, no masses. MSK: Full range of motion, no joint swelling or deformity. Normal gait. Skin: Warm, dry, intact. No rashes, lesions, or pallor. Neuro: Alert and oriented x3. Cranial nerves II-XII intact. Strength 5/5 throughout. Sensation intact. Reflexes 2+ symmetric. Normal coordination and gait. Psych: Appropriate mood and affect. Normal judgment and insight. Office Procedures Flu Questionnaire Does the patient have a severe egg allergy?: No Does the patient have severe life threatening allergies?: No Does the patient have a fever or illness today?: No Has the patient ever had Guillain-[place] Syndrome?: No Has the patient ever had any past reaction to a flu shot?: No Immunizations Fluarix [id number] (PF) 45 mcg (15 mcg x 3)/0.5 mL IM syringe Performing Provider: Servando Hernandez MD Performing Location: [facility] [place] [facility] Documented (not given) by: Louise Lloyd CMA on 11/01/25 08:56 Reason Not Given: Patient Refused Coding Level of Care Code Est Pt Level 3 (02823) Add On Problem Visit Only Diagnoses Hyperlipidemia E78.5 Iron deficiency anemia D50.9 Sebaceous cyst L72.3 ADHD F90.9 Class 1 obesity E66.811 Tobacco use Z72.0 Hypertension I10 Dyslipidemia E78.5 Low vitamin B12 level R79.89 Additional Codes MARCK-7 Assessment Billing - MARCK-7 Assessment Tool: MARCK-7 Assessment 84206 ([id number]) PHQ-9 - 57037 - PHQ-9 Billing: Yes ([id number]) Assessment & Plan Assessment & Plan (1) Hyperlipidemia: Code(s): E78.5 - Hyperlipidemia, unspecified Category: Medical (2) Iron deficiency anemia: Code(s): D50.9 - Iron deficiency anemia, unspecified Category: Medical (3) Sebaceous cyst: Code(s): L72.3 - Sebaceous cyst Category: Medical (4) ADHD: Code(s): F90.9 - Attention-deficit hyperactivity disorder, unspecified type Category: Medical (5) Class 1 obesity: Code(s): E66.811 - Obesity, class 1 Category: Medical (6) Tobacco use: Code(s): Z72.0 - Tobacco use Category: Social Hx (7) Hypertension: Code(s): I10 - Essential (primary) hypertension Category: Medical (8) Dyslipidemia: Code(s): E78.5 - Hyperlipidemia, unspecified Category: Medical (9) Low vitamin B12 level: Code(s): R79.89 - Other specified abnormal findings of blood chemistry Category: Medical Plan Consent Patient was informed and verbally consented to the use of an ambient scribe for clinic note documentation during this visit. Plan 1. Elevated Blood Pressure - The patient was provided a prescription for a home blood pressure monitoring kit and a log. - He was instructed to check his blood pressure in the morning and evening, taking three readings at each sitting and recording the best one. - He should avoid coffee consumption before measurements. - A follow-up visit is scheduled in 2-3 weeks to review at least 28 blood pressure readings and determine if antihypertensive medication is necessary. 2. Dyslipidemia - The patient was advised to continue dietary changes, such as avoiding soda and cheese, to help lower his triglycerides and LDL cholesterol. 3. Anemia - The patient will be provided with a handout on iron-rich foods, such as broccoli, spinach, and kidney beans, to address his low iron levels through diet. 4. Vitamin B12 Deficiency - A prescription for sublingual vitamin B12 1000 mcg daily was sent to the pharmacy to supplement his low levels. Discussion Notes I reviewed the patient's lab results, noting elevated blood pressure, dyslipidemia, mild anemia, and low vitamin B12. I explained that we will monitor his blood pressure at home before considering medication, given his current stress and the potential for white coat hypertension. I provided a prescription for a home BP monitor and a log, with instructions for proper use. We discussed how dietary improvements, which he has already started by cutting out soda and pizza, can help his dyslipidemia and anemia. I prescribed vitamin B12 to address his low levels and improve energy. We will follow up in 2-3 weeks to review the blood pressure log and decide on further management. Patient Instructions - Use the provided prescription to get a blood pressure machine from the medical supply store. - Check your blood pressure twice a day (morning and night). - Each time you check, take the reading three times while sitting in a chair with back support and record the best (lowest) number in your log. - Do not drink coffee before checking your blood pressure. - Take one Vitamin B12 1000 mcg tablet under the tongue every day. - Eat more iron-rich foods like broccoli, spinach, and beans. - Continue to avoid soda and pizza to help your cholesterol levels. - Schedule a follow-up appointment in 2 to 3 weeks and bring your blood pressure log with you. Medical Decision Making The patient is a 35-year-old male evaluated for lab results and elevated blood pressure. His blood pressure was 148/87 mmHg in the office, consistent with a prior elevated reading. Given potential contributing factors including patient stress and possible white coat effect, I am deferring the initiation of antihypertensive medication pending home blood pressure monitoring. The goal is to obtain at least 28 readings over two weeks to confirm sustained hypertension before starting treatment. Lab results revealed dyslipidemia, mild anemia, and a low-normal vitamin B12 level, which are likely secondary to his self-reported poor diet. Management will focus on lifestyle and dietary modifications, which the patient has already begun, and supplementation with vitamin B12 was prescribed. A follow-up is scheduled in 2-3 weeks to reassess the blood pressure data. Total Time Statement 20 min Total time spent caring for the patient today includes pre-visit chart review, documentation, review of laboratory and diagnostic imaging results, medication reconciliation, medically necessary evaluation, counseling on diagnoses, care coordination, ordering appropriate tests and medications, review of tests performed by other providers, reporting test results to the patient, and communication with other healthcare providers. Orders: Orders Influenza [id number] Immunization Today Z23 - Encounter for immunization Medications: New [blood pressure kit] As directed 1 ea 0RF I10 - Essential (primary) hypertension mecobalamin (vitamin B12) place tablet under tongue and allow to dissolve for at least30 secs before swallowing 1,000 mcg sublingual BEDTIME 90 tabs 0RF
--- OUTSIDE RECORDS SUMMARY | 2025-11-01 09:03 | XMS_ITS | Clinical Summary ---
Author Organization [facility] Address [address] [place] [address] Phone Care Team Providers Care Police Sergeant Name Role Phone Physician, No Pcp Primary [...] patient's age to complete this topic Insurance [place] [address] [employer] Care Teams Police Sergeant Relationship Specialty Start Date End Date Physician, No Pcp PCP - General 10/22/24
== END 2025-11-01 09:13 | disposition home or self-care (01) ==
LOC: HO.HMCFMS 08:46
PROVIDERS: PCP Student in an Organized Health Care Education/Training Program; Visit Provider Student in an Organized Health Care Education/Training Program
DX: E78.5 Hyperlipidemia, unspecified (principal); D50.9 Iron deficiency anemia, unspecified; L72.3 Sebaceous cyst; F90.9 Attention-deficit hyperactivity disorder, unspecified type; E66.811 Obesity, class 1; Z72.0 Tobacco use; I10 Essential (primary) hypertension; R79.89 Other specified abnormal findings of blood chemistry; Z23 Encounter for immunization

== ENCOUNTER → 2025-11-01 08:45 | Outpatient (BNVA) | payer OTHER, SELFPAY | PROVIDERS: Visit Provider Student in an Organized Health Care Education/Training Program | DX: E78.5 Hyperlipidemia, unspecified (principal); D50.9 Iron deficiency anemia, unspecified; L72.3 Sebaceous cyst; F90.9 Attention-deficit hyperactivity disorder, unspecified type; E66.811 Obesity, class 1; I10 Essential (primary) hypertension; R79.89 Other specified abnormal findings of blood chemistry; Z72.0 Tobacco use; Z28.21 Immunization not carried out because of patient refusal; Z13.31 Encounter for screening for depression; Z13.39 Encounter for screening examination for other mental health and behavioral disorders | CPT/HCPCS: 90471; 96127; 99212 ==